=== PATIENT | male | born 1995 | race Caucasian/White ===

== ENCOUNTER 2017-08-16 06:00 | Emergency (ER) | payer SELFPAY ==
--- NOTE | 2017-08-16 06:33 | EDM.PDOC ---
ED HPI GENERAL MEDICAL PROBLEM - General Chief Complaint: Headache Stated Complaint: HEADACHE Time Seen by Provider: 08/16/17 06:13 Source of Information: Reports: Patient History Limitations: Reports: No Limitations - History of Present Illness INITIAL COMMENTS - FREE TEXT/NARRATIVE: The patient states that he developed a sudden onset throbbing headache felt across his forehead and behind his eyes around 05:00 this morning, just after he got up. The pain is made worse by being upright and moving around, better if he lies still. He also states that his headache feels better if he presses on his forehead. He had nausea earlier, but not now. He is unsure if he has photophobia. No phonophobia. No visual changes. No neurologic symptoms, such as tingling, numbness, or weakness. No prior similar symptoms, indeed, the patient states that he never gets headaches. No prior imaging study of his head. The patient states that he took an Aleve earlier, which did not help. The patient admits that he drank 8 beers last night, and that he drinks to excess on occasion. He also admits that he smokes marijuana on occasion, but not last night. The patient does not have a PCP. Frontal Headache Pain Score (Numeric/FACES): 8 - Related Data Allergies Allergy/AdvReac Type Severity Reaction Status Date / Time No Known Allergies Allergy Verified 08/16/17 06:06 Home Meds: Home Meds . [No Known Home Meds] 12/29/13 [History] Past Medical History - Past Surgical History GI Surgical History: Reports: Appendectomy Social & Family History - Tobacco Use Smoking Status *Q: Current Every Day Smoker Years of Tobacco use: 6 Packs/Tins Daily: 0.5 - Alcohol Use Alcohol Use History: Yes Alcohol Use Frequency: Socially (to excess on occasion) - Recreational Drug Use Recreational Drug Use: Yes Drug Use in Last 12 Months: Yes Recreational Drug Type: Reports: Marijuana/Hashish (smokes on occasion) - Living Situation & Occupation Living situation: Reports: Single, with Family Occupation: Unemployed ED ROS GENERAL - Review of Systems Review Of Systems: ROS reveals no pertinent complaints other than HPI. - Physical Exam Exam: See Below Exam Limited By: No Limitations General Appearance: Alert, WD/WN, Mild Distress (Appears uncomfortable) Eye Exam: Bilateral Eye: EOMI, Normal Inspection, PERRL Ears: Normal External Exam, Hearing Grossly Normal Nose: Normal Inspection, No Blood Throat/Mouth: Normal Inspection, Normal Lips, Normal Voice, No Airway Compromise Head Exam: Atraumatic, Normocephalic Neck: Normal Inspection, Full Range of Motion Respiratory/Chest: No Respiratory Distress, Lungs Clear, Normal Breath Sounds, No Accessory Muscle Use Cardiovascular: Normal Peripheral Pulses, Regular Rate, Rhythm, No Edema, No Gallop, No JVD, No Murmur, No Rub GI/Abdominal: Normal Bowel Sounds, Soft, Non-Tender, No Organomegaly, No Distention, No Abnormal Bruit, No Mass (Male) Exam: Deferred Rectal (Males) Exam: Deferred Neuro Exam (Abbreviated): Alert, Oriented, CN II-XII Intact, Normal Cognition, No Motor/Sensory Deficits Back Exam: Normal Inspection, Full Range of Motion, NT Extremities: Normal Inspection, Normal Range of Motion, No Pedal Edema, Normal Capillary Refill Psychiatric: Normal Affect Skin Exam: Warm, Dry, Intact, Normal Color, No Rash Course - Vital Signs Last Recorded V/S: Last Vital Signs Temp 36.5 C 08/16/17 06:08 Pulse 60 08/16/17 06:08 Resp 16 08/16/17 06:08 BP 128/81 08/16/17 06:08 Pulse Ox 98 08/16/17 06:08 - Re-Assessments/Exams Free Text/Narrative Re-Assessment/Exam: 08/16/17 06:25 The etiology of the patient's headache is unclear. While the patient reports that it is severe, he feels it across his forehead - it is not unilateral, and therefore it is unlikely a cluster headache. The patient reports that it is throbbing in character, and he had some nausea earlier, otherwise, he has no other features that are consistent with a migraine. I suspect that the patient' s headache is related to his excessive alcohol intake last night, in which case it should be able to be treated with IV fluid and Toradol. Because of the sudden onset and severity of his symptoms, I ordered a CT scan of his head to rule out a bleed. 08/16/17 06:57 CT of the head without contrast is read by Dr. Christianson as: 1. Nothing acute is identified on noncontrast head CT study. 08/16/17 06:59 The patient states that his headache is nearly resolved. It is unclear if it is the oxygen that he received, or, perhaps the Aleve that he took earlier finally took effect. Departure - Departure Time of Disposition: 07:00 Disposition: Home, Self-Care 01 Condition: Good Clinical Impression: Headache - Discharge Information Referrals: PCP,None [Primary Care Provider] - Forms: ED Department Discharge Additional Instructions: You were seen in the emergency room for a severe frontal headache. Workup in the ER included a CT scan of her head, which was normal. Your headaches significantly improved after he received supplemental oxygen, although it is possible that your headache improved because of the Aleve that he took earlier. Get plenty of rest today. Stay well hydrated. If any other problems, please do not hesitate to return to the ER.
--- NOTE | 2017-08-16 06:53 | CT ---
Head CT Technique: Multiple axial sections through the brain were obtained. Intravenous contrast was not utilized. Comparison: No prior intracranial imaging is available. Findings: Ventricles along with basal cisterns and sulci over the convexities are within normal limits for the patient's age. No abnormal parenchymal densities are seen. No evidence of intracranial hemorrhage. No midline shift or mass effect is seen. Bone window settings were reviewed which shows no acute calvarial abnormality. Visualized sinuses are clear. Impression: 1. Nothing acute is identified on noncontrast head CT study. Diagnostic code #1
== END 2017-08-16 07:15 | disposition home or self-care (01) ==
LOC: JD.ED 06:00
DX: R51 Headache (principal); F17.210 Nicotine dependence, cigarettes, uncomplicated
CPT/HCPCS: 70450; 70450-26; 99283; 99284-25

== ENCOUNTER 2017-10-04 23:29 | Inpatient (IN) | payer MEDICAID, OTHER ==
[2017-10-05] MEDS ORDERED: ceFAZolin 2 GM in Premix Bag 1 BAG IV STA (00:13)
[2017-10-05] MEDS ORDERED: HYDROmorphone 0.5 MG/0.5 ML Syringe IVPUSH STA (00:14)
--- NOTE | 2017-10-05 00:16 | EDM.PDOC ---
ED HPI GENERAL MEDICAL PROBLEM - General Chief Complaint: Lower Extremity Injury/Pain Stated Complaint: LEG PAIN Time Seen by Provider: 10/04/17 23:46 Source of Information: Reports: Patient History Limitations: Reports: No Limitations - History of Present Illness INITIAL COMMENTS - FREE TEXT/NARRATIVE: The patient states that the edge of his skateboard struck the medial aspect of his right leg on or about 09/27/2017. The skateboard left a small laceration to the medial leg, that bled slightly. The patient states that his leg began to swell shortly afterwards. He elevated and iced the leg, and the swelling resolves 3 or 4 days ago. The patient states that Tuesday evening, 10/03/2017, the leg became swollen again and painful. He developed erythema to the leg Tuesday or Tuesday, 10/03/2017 or . The patient states that he soak the leg in Epsom salts and applied Neosporin to the wound. He has taken ibuprofen for discomfort, but he has not sought medical evaluation until tonight, and has not taken any antibiotics. No recent fever. The patient does not have a PCP. Treatments CLASSIFICATION OFFICER: Reports: NSAIDS right lower leg Pain Score (Numeric/FACES): 9 - Related Data Allergies Allergy/AdvReac Type Severity Reaction Status Date / Time No Known Allergies Allergy Verified 10/04/17 23:47 Home Meds: Home Meds . [No Known Home Meds] 12/29/13 [History] Past Medical History - Past Surgical History GI Surgical History: Reports: Appendectomy Social & Family History - Family History Family Medical History: Noncontributory - Tobacco Use Smoking Status *Q: Current Every Day Smoker Years of Tobacco use: 7 Packs/Tins Daily: 1 - Caffeine Use Caffeine Use: Reports: Soda - Alcohol Use Alcohol Use History: Yes Alcohol Use Frequency: Socially (occasionally to excess) - Recreational Drug Use Recreational Drug Use: Yes Drug Use in Last 12 Months: Yes Recreational Drug Type: Reports: Marijuana/Hashish (smokes on occasion) - Living Situation & Occupation Living situation: Reports: Single, with Family Occupation: Unemployed ED ROS GENERAL - Review of Systems Review Of Systems: ROS reveals no pertinent complaints other than HPI. ED EXAM, SKIN/RASH Exam: See Below Exam Limited By: No Limitations General Appearance: Alert, WD/WN, No Apparent Distress Extremities: Other (There is considerable swelling and erythema to the medial aspect of the patient's right leg. It does not extend above the knee or below the ankle. The area has been demarcated. In the approximate center of the erythema is a small laceration, measuring no greater than 1 cm across. No drainage from the wound. Neurovascular status of the right lower extremity is intact.) Course - Vital Signs Last Recorded V/S: Last Vital Signs Temp 37.6 C 10/04/17 23:38 Pulse 106 H 10/04/17 23:38 Resp 18 10/04/17 23:38 BP 131/77 10/04/17 23:38 Pulse Ox 98 10/04/17 23:38 - Re-Assessments/Exams Free Text/Narrative Re-Assessment/Exam: 10/05/17 00:09 The patient has significant cellulitis to his right leg, that will require IV antibiotics until improvement has been demonstrated, which time he can be switched to oral antibiotics. The current area of erythema has been pen demarcated. 10/05/17 00:[address] Muñoz at 00:09. She accepts the patient for admission. She would like us to give 1 g of IV vancomycin. I will also start Ancef and order a MRSA screen. Departure - Departure Time of Disposition: 00:12 Disposition: Admitted As Inpatient 64 Condition: Good Clinical Impression: Cellulitis of right leg without foot - Discharge Information *PRESCRIPTION DRUG MONITORING PROGRAM REVIEWED*: Not Applicable *COPY OF PRESCRIPTION DRUG MONITORING REPORT IN PATIENT SEDA: Not Applicable Referrals: Jordan Diaz MD [Primary Care Provider] -
[2017-10-05] MEDS ORDERED: HYDROmorphone 0.5 MG/0.5 ML SYRINGE ONE (00:25)
[2017-10-05] MEDS ORDERED: Acetaminophen 325 MG Tab PO PRN (05:58)
[2017-10-05] MEDS ORDERED: Ibuprofen 800 MG Tab PO PRN (05:58)
[2017-10-05] MEDS ORDERED: Temazepam 15 MG Cap PO PRN (06:17)
[2017-10-05] MEDS: Sodium Chloride 0.9% 1,000 ML IV SCH ×3 (06:24→19:57)
[2017-10-05] MEDS: Morphine 2 MG/ML Syringe IVPUSH PRN (06:26)
[2017-10-05] MEDS ORDERED: Ondansetron 4 MG/2 ML SDV IV PRN (06:39)
[2017-10-05] MEDS ORDERED: Ondansetron 4 MG Tab.DIS PO PRN (06:39)
[2017-10-05] MEDS ORDERED: Nicotine 21 MG/24 Hr Patch TRDERM PRN (08:54)
[2017-10-05] MEDS ORDERED: Nicotine 21 MG/24 Hr Patch TRDERM SCH (09:00)
[2017-10-05] MEDS: Acetaminophen/HYDROcodone 325-5 MG Tab PO PRN ×4 (09:09→21:40)
[2017-10-05] MEDS ORDERED: Doxycycline 100 MG in Sodium Chloride 0.9% 100 ML IV SCH (13:00)
--- NOTE | 2017-10-05 20:06 | PCM.HP ---
H&P History of Present Illness - General Date of Service: 10/05/17 Admit Problem/Dx: Admission Diagnosis/Problem Admission Diagnosis/Problem Cellulitis Source of Information: Patient, Provider History Limitations: Reports: No Limitations - History of Present Illness Initial Comments - Free Text/Narative: HPI: This is a 22 yo male with past medical hx/o appendectomy who comes in for cellulitis of the R leg after sustaining a small 1cm laceration to the loo area about 8 days ago. The pain, erythema, and swelling continued to get worse so he came to the ED for treatment. His initial workup showed a CBC remarkable for WBC 14.7, Neut 75.4%, Lymph 14.8% . His chemistry is remarkable for CRP 25.4. MRSA (PCR) negative. He is subsequently admitted to the medical floor for IV antibiotics. He is a Full Code. Currently he has no PCP. right lower leg Pain Score (Numeric/FACES): 9 - Related Data Allergies/Adverse Reactions: Allergies Allergy/AdvReac Type Severity Reaction Status Date / Time No Known Allergies Allergy Verified 10/04/17 23:47 Home Medications: Home Meds . [No Known Home Meds] 12/29/13 [History] Past Medical History - Past Health History Medical/Surgical History: Denies Medical/Surgical History Neurological History: Reports: Headaches, Chronic - Infectious Disease History Infectious Disease History: Reports: Chicken Pox - Past Surgical History GI Surgical History: Reports: Appendectomy Social & Family History - Family History Family Medical History: Noncontributory - Tobacco Use Smoking Status *Q: Current Every Day Smoker Years of Tobacco use: 7 Packs/Tins Daily: 1 Used Tobacco, but Quit: No - Caffeine Use Caffeine Use: Reports: Coffee - Recreational Drug Use Recreational Drug Use: Yes Drug Use in Last 12 Months: Yes Recreational Drug Type: Reports: Marijuana/Hashish - Living Situation & Occupation Living situation: Reports: Single, with Family Occupation: Unemployed H&P Review of Systems - Review of Systems: Review Of Systems: ROS reveals no pertinent complaints other than HPI. General: Denies: Fever, Chills Gastrointestinal: Denies: Abdominal Pain, Diarrhea, Nausea, Vomiting Skin: Reports: Erythema (Medial aspect of the patient's right leg, has extended another 2 inches from previous marking. The area has been demarcated with dotted line.), Wound (1 cm scab with no drainage on lower leg) Exam - Exam Exam: See Below - Vital Signs Vital Signs: Last Vital Signs Temp 98.4 F 10/05/17 18:42 Pulse 62 10/05/17 18:42 Resp 14 10/05/17 18:42 BP 130/72 10/05/17 18:42 Pulse Ox 100 10/05/17 18:42 Weight: 185 lb 3.2 oz - Exam General: Alert, Oriented, Cooperative, Mild Distress HEENT: PERRLA, Hearing Intact, Mucosa Moist & [place], Nares Patent, Normal Nasal Septum, Posterior Pharynx Clear, Conjunctiva Clear, EOMI, EACs Clear, TMs Clear Neck: Supple, Trachea Midline, 2 Lungs: Clear to Auscultation, Normal Respiratory Effort Cardiovascular: Regular Rate GI/Abdominal Exam: Normal Bowel Sounds, Soft, Non-Tender, No Organomegaly, No Distention, No Abnormal Bruit, No Mass, Pelvis Stable (Male) Exam: Deferred Rectal (Males) Exam: Deferred Back Exam: Normal Inspection, Full Range of Motion, NT Extremities: Normal Range of Motion, Normal Capillary Refill, Leg Pain, Increased Warmth, Redness, Other (Swelling and erythema to the medial aspect of the patient's right leg, has extended another 2 inches from previous marking. The area has been demarcated with dotted line. 1 cm scab with no drainage in the center of the erythema. Neurovascularly intact. ) Peripheral Pulses: 3+: Posterior Tibial (L), Posterior Tibial (R), Dorsalis Pedis (L), Dorsalis Pedis (R) Skin: Warm, Dry, Intact, Rash, Wound (1 cm scab with no drainage on RLE) Skin Alteration Location (Drawings Not To Scale): 1 - scab from original entry wound Neurological: Cranial Nerves Intact (grossly), Reflexes Equal Bilateral Neuro Extensive - Mental Status: Alert, Oriented x3, Normal Mood/Affect, Normal Cognition Psychiatric: Alert, Normal Affect, Normal Mood - Patient Data Lab Results Last 24 hrs: Laboratory Results - last 24 hr 10/05/17 10/05/17 10/05/17 Range/Units 00:15 07:05 07:05 WBC 14.70 H (4.23-9.07) K/mm3 RBC 4.82 (4.63-6.08) M/mm3 Hgb 14.8 (13.7-17.5) gm/L Hct 43.9 (40.1-51.0) % MCV 91.1 (79.0-92.2) fl MCH 30.7 (25.7-32.2) pg MCHC 33.7 (32.2-35.5) g/dl RDW Std Deviation 43.6 (35.1-43.9) fL Plt Count 292 (163-337) K/mm3 MPV 10.4 (9.4-12.3) fl Neut % (Auto) 75.4 H (34.0-67.9) % Lymph % (Auto) 14.8 L (21.8-53.1) % [place] % (Auto) 8.8 (5.3-12.2) % Eos % (Auto) 0.7 L (0.8-7.0) Baso % (Auto) 0.2 (0.1-1.2) % Neut # (Auto) 11.08 H (1.78-5.38) K/mm3 Lymph # (Auto) 2.17 (1.32-3.57) K/mm3 [place] # (Auto) 1.30 H (0.30-0.82) K/mm3 Eos # (Auto) 0.10 (0.04-0.54) K/mm3 Baso # (Auto) 0.03 (0.01-0.08) K/mm3 Sodium 138 (136-145) mEq/L Potassium 3.6 (3.5-5.1) mEq/L Chloride 100 (98-107) mEq/L Carbon Dioxide 28 (21-32) mEq/L Anion Gap 13.6 (5-15) BUN 10 (7-18) mg/dL Creatinine 0.9 (0.7-1.3) mg/dL Est Cr Clr Drug Dosing 147.15 mL/min Estimated GFR (MDRD) > 60 (>60) mL/min BUN/Creatinine Ratio 11.1 L (14-18) Glucose 91 (74-106) mg/dL Lactic Acid (0.4-2.0) mmol/L Calcium 9.1 (8.5-10.1) mg/dL Magnesium 2.2 (1.8-2.4) mg/dl C-Reactive Protein 25.4 H* (<1.0) mg/dL MRSA (PCR) Negative 10/05/17 Range/Units 07:05 WBC (4.23-9.07) K/mm3 RBC (4.63-6.08) M/mm3 Hgb (13.7-17.5) gm/L Hct (40.1-51.0) % MCV (79.0-92.2) fl MCH (25.7-32.2) pg MCHC (32.2-35.5) g/dl RDW Std Deviation (35.1-43.9) fL Plt Count (163-337) K/mm3 MPV (9.4-12.3) fl Neut % (Auto) (34.0-67.9) % Lymph % (Auto) (21.8-53.1) % [place] % (Auto) (5.3-12.2) % Eos % (Auto) (0.8-7.0) Baso % (Auto) (0.1-1.2) % Neut # (Auto) (1.78-5.38) K/mm3 Lymph # (Auto) (1.32-3.57) K/mm3 [place] # (Auto) (0.30-0.82) K/mm3 Eos # (Auto) (0.04-0.54) K/mm3 Baso # (Auto) (0.01-0.08) K/mm3 Sodium (136-145) mEq/L Potassium (3.5-5.1) mEq/L Chloride (98-107) mEq/L Carbon Dioxide (21-32) mEq/L Anion Gap (5-15) BUN (7-18) mg/dL Creatinine (0.7-1.3) mg/dL Est Cr Clr Drug Dosing mL/min Estimated GFR (MDRD) (>60) mL/min BUN/Creatinine Ratio (14-18) Glucose (74-106) mg/dL Lactic Acid 0.5 (0.4-2.0) mmol/L Calcium (8.5-10.1) mg/dL Magnesium (1.8-2.4) mg/dl C-Reactive Protein (<1.0) mg/dL MRSA (PCR) Result Diagrams: 10/05/17 07:05 10/05/17 07:05 - Problem List (1) Cellulitis of right leg without foot SNOMED Code(s): 094677499 ICD Code: L03.115 - CELLULITIS OF RIGHT LOWER LIMB Status: Acute Priority : High Current Visit: Yes Problem List Initiated/Reviewed/Updated: Yes Orders Last 24hrs: Active Orders 24 hr Category Date Time Status Patient Status [ADT] Routine ADT 10/05/17 15:11 Active Ambulate [RC] ASDIRECTED Care 10/05/17 06:39 Active Height and Weight [RC] 04 Care 10/05/17 06:39 Active Intake and Output [RC] 04,16 Care 10/05/17 06:40 Active Oxygen Therapy [RC] PRN Care 10/05/17 06:39 Active Pulse Oximetry [RC] PRN Care 10/05/17 06:40 Active Up With Assistance [RC] ASDIRECTED Care 10/05/17 06:50 Active Up ad Shannan [RC] ASDIRECTED Care 10/05/17 06:39 Active VTE/DVT Education [RC] PER UNIT ROUTINE Care 10/05/17 06:39 Active Vital Signs [RC] 09,15,03,21 Care 10/05/17 06:39 Active Consult to [facility] [CONS] Routine Cons 10/05/17 08:47 Active Regular Diet [DIET] Diet 10/05/17 Breakfast Active BASIC METABOLIC PANEL,BMP [CHEM] AM Lab 10/06/17 05:11 Ordered BASIC METABOLIC PANEL,BMP [CHEM] AM Lab 10/07/17 05:11 Ordered BASIC METABOLIC PANEL,BMP [CHEM] AM Lab 10/08/17 05:11 Ordered BASIC METABOLIC PANEL,BMP [CHEM] AM Lab 10/09/17 05:11 Ordered CBC WITH AUTO DIFF [HEME] AM Lab 10/06/17 05:11 Ordered CBC WITH AUTO DIFF [HEME] AM Lab 10/07/17 05:11 Ordered CBC WITH AUTO DIFF [HEME] AM Lab 10/08/17 05:11 Ordered CBC WITH AUTO DIFF [HEME] AM Lab 10/09/17 05:11 Ordered CRP [C-REACTIVE PROTEIN] [CHEM] AM Lab 10/06/17 05:11 Ordered CRP [C-REACTIVE PROTEIN] [CHEM] AM Lab 10/07/17 05:11 Ordered CRP [C-REACTIVE PROTEIN] [CHEM] AM Lab 10/08/17 05:11 Ordered CRP [C-REACTIVE PROTEIN] [CHEM] AM Lab 10/09/17 05:11 Ordered CULTURE BLOOD [BC] Stat Lab 10/05/17 07:05 Received CULTURE BLOOD [BC] Stat Lab 10/05/17 07:15 Received MAGNESIUM [CHEM] AM Lab 10/06/17 05:11 Ordered MAGNESIUM [CHEM] AM Lab 10/07/17 05:11 Ordered MAGNESIUM [CHEM] AM Lab 10/08/17 05:11 Ordered MAGNESIUM [CHEM] AM Lab 10/09/17 05:11 Ordered METH-RESIST S.AUR,MRSA BY PCR [MOLEC] Stat Lab 10/05/17 00:15 Ordered Acetaminophen [Tylenol] Med 10/05/17 05:58 Active 650 mg PO Q6HR PRN Acetaminophen/HYDROcodone [[facility] 325-5 MG] Med 10/05/17 06:39 Active 1 tab PO Q4H PRN Doxycycline [Vibramycin] 100 mg Med 10/05/17 13:00 Active Sodium Chloride 0.9% [Normal Saline] 100 ml IV Q12H Ibuprofen [Motrin] Med 10/05/17 05:58 Active 800 mg PO Q8HR PRN Morphine Med 10/05/17 06:18 Active 2 mg IVPUSH Q4H PRN Nicotine [Habitrol] Med 10/05/17 08:54 Active 21 mg TRDERM DAILY PRN Ondansetron [Zofran ODT] Med 10/05/17 06:39 Active 4 mg PO Q6H PRN Ondansetron [Zofran] Med 10/05/17 06:39 Active 4 mg IV Q6H PRN Sodium Chloride 0.9% [Normal Saline] 1,000 ml Med 10/05/17 06:00 Active IV ASDIRECTED Temazepam [Restoril] Med 10/05/17 06:17 Active 15 mg PO BEDTIME PRN Blood Culture x2 Reflex Set [OM.PC] Stat Oth 10/05/17 06:46 Ordered Resuscitation Status Routine Resus Stat 10/05/17 05:57 Ordered Medication Orders Acetaminophen (Tylenol) 650 mg PO Q6HR PRN PRN Reason: Pain Hydrocodone Bitart/Acetaminophen ([facility] 325-5 Mg) 1 tab PO Q4H PRN PRN Reason: Pain (moderate 4-6) Last Admin: 10/05/17 17:29 Dose: 1 tab Admin: 10/05/17 13:27 Dose: 1 tab Admin: 10/05/17 09:09 Dose: 1 tab Sodium Chloride (Normal Saline) 1,000 mls @ 150 mls/hr IV ASDIRECTED PENDING SALE TO [facility] Last Admin: 10/05/17 19:57 Dose: 150 mls/hr Infusion: 10/05/17 19:57 Dose: 150 mls/hr Admin: 10/05/17 13:24 Dose: 150 mls/hr Infusion: 10/05/17 13:05 Dose: 150 mls/hr Admin: 10/05/17 06:24 Dose: 150 mls/hr Doxycycline Hyclate 100 mg/ (Sodium Chloride) 100 mls @ 100 mls/hr IV Q12H PENDING SALE TO [facility] Last Admin: 10/05/17 13:25 Dose: 100 mls/hr Ibuprofen (Motrin) 800 mg PO Q8HR PRN PRN Reason: Pain Morphine Sulfate (Morphine) 2 mg IVPUSH Q4H PRN PRN Reason: Pain Last Admin: 10/05/17 06:26 Dose: 2 mg Nicotine (Habitrol) 21 mg TRDERM DAILY PRN PRN Reason: Need to smoke Ondansetron HCl (Zofran Odt) 4 mg PO Q6H PRN PRN Reason: nausea, able to take PO Ondansetron HCl (Zofran) 4 mg IV Q6H PRN PRN Reason: Nausea/Vomiting Temazepam (Restoril) 15 mg PO BEDTIME PRN PRN Reason: Insomnia Assessment/Plan Comment:: Acute: Cellulitis, R Leg * 8 days ago his skateboard struck the medial aspect of his right leg, 2 days ago the leg became swollen and painful, Yesterday erythema began * No Fever/Chills * Ancef 2gm and Vancomycin 1g given in ED--> D/C'd * WBC 14.7, CRP 25.4 * Sepsis Protocol: * Lactic Acid 0.5 * Blood cultures pending * IVF * Pt was switched to Doxy 100mg BID --> D/C; erythema grew 2 inches from previous markings on leg; have made new dotted markings to differentiate and continue to monitor * Restart Vancomycin 1g tonight * MRSA by PCR negative; No wound to culture * Pain management PRN Tobacco Dependence * 1 ppd x 7 years * Not interested in quitting at this time * Smoking Cessation counseling given * Nicotine patch started Chronic: h/o Appendectomy h/o Marijuana use Plan: Admit to medical floor Home meds as ordered Routine AM labs Other orders as above DVT Prophylaxis: Ambulation GI Prophylaxis: Pepcid Code Status: Full Code; PCP: none
[2017-10-05] MEDS: Famotidine 20 MG Tab PO SCH (21:39)
[2017-10-06] MEDS ORDERED: Vancomycin 500 MG SDV ONE (03:08)
[2017-10-06] MEDS: Sodium Chloride 0.9% 1,000 ML IV SCH ×3 (03:28→20:03)
[2017-10-06] MEDS: Acetaminophen/HYDROcodone 325-5 MG Tab PO PRN ×3 (05:28→21:00)
[2017-10-06] MEDS: Famotidine 20 MG Tab PO SCH ×2 (09:53→20:04)
[2017-10-06] MEDS ORDERED: Diphtheria/Tetanus Toxoids,Adult (Td) 0.5 ML Syringe IM ONE (11:45)
[2017-10-06] MEDS: cefTRIAXone 2 GM in Sodium Chloride 0.9% 100 ML IV SCH (11:52)
[2017-10-06] MEDS: Saccharomyces Boulardii (Probiotic) 250 MG Cap PO SCH (12:11)
--- NOTE | 2017-10-06 18:58 | PCM.PN ---
<Miguelina Cifuentes - Last Filed: 10/06/17 18:52> - General Info Date of Service: 10/06/17 Admission Dx/Problem (Free Text): Admission Diagnosis/Problem Admission Diagnosis/Problem Cellulitis Subjective Update: In to see Adan. He is sleeping in bed is awoken when I knock on the door. He is doing well, and the erythema from yesterday has receded below the original marking from the ED. I explained that we changed the antibiotics since it had grown 2 inches yesterday and that they seem to be working. He denies any other symptoms. No F/C, N/V/D. No concerns from nursing. Functional Status: Reports: Pain Controlled, Tolerating Diet, Ambulating, Urinating - Review of Systems General: Reports: No Symptoms. Denies: Fever, Chills HEENT: Reports: No Symptoms Pulmonary: Reports: No Symptoms. Denies: Shortness of Breath Cardiovascular: Reports: No Symptoms. Denies: Chest Pain Gastrointestinal: Reports: No Symptoms. Denies: Abdominal Pain, Diarrhea, Nausea, Vomiting Genitourinary: Reports: No Symptoms Musculoskeletal: Reports: No Symptoms Skin: Reports: Other (erythema from yesterday has receded below the original marking from the ED) Neurological: Reports: No Symptoms Psychiatric: Reports: No Symptoms - Patient Data Vitals - Most Recent: Last Vital Signs Temp 98.1 F 10/06/17 15:07 Pulse 67 10/06/17 15:07 Resp 18 10/06/17 15:07 BP 131/79 10/06/17 15:07 Pulse Ox 97 10/06/17 15:07 Weight - Most Recent: 87.679 kg I&O - Last 24 Hours: Intake & Output 10/06/17 10/06/17 10/06/17 06:59 14:59 22:59 Intake Total 2874 2652 Balance 2874 2652 Lab Results Last 24 Hours: Laboratory Results - last 24 hr 10/06/17 10/06/17 Range/Units 05:35 05:35 WBC 10.95 H (4.23-9.07) K/mm3 RBC 4.14 L (4.63-6.08) M/mm3 Hgb 12.7 L (13.7-17.5) gm/L Hct 38.4 L (40.1-51.0) % MCV 92.8 H (79.0-92.2) fl MCH 30.7 (25.7-32.2) pg MCHC 33.1 (32.2-35.5) g/dl RDW Std Deviation 43.8 (35.1-43.9) fL Plt Count 256 (163-337) K/mm3 MPV 10.6 (9.4-12.3) fl Neut % (Auto) 73.6 H (34.0-67.9) % Lymph % (Auto) 16.5 L (21.8-53.1) % [place] % (Auto) 8.0 (5.3-12.2) % Eos % (Auto) 1.5 (0.8-7.0) Baso % (Auto) 0.2 (0.1-1.2) % Neut # (Auto) 8.06 H (1.78-5.38) K/mm3 Lymph # (Auto) 1.81 (1.32-3.57) K/mm3 [place] # (Auto) 0.88 H (0.30-0.82) K/mm3 Eos # (Auto) 0.16 (0.04-0.54) K/mm3 Baso # (Auto) 0.02 (0.01-0.08) K/mm3 Sodium 141 (136-145) mEq/L Potassium 4.1 (3.5-5.1) mEq/L Chloride 107 (98-107) mEq/L Carbon Dioxide 26 (21-32) mEq/L Anion Gap 12.1 (5-15) BUN 9 (7-18) mg/dL Creatinine 0.9 (0.7-1.3) mg/dL Est Cr Clr Drug Dosing 147.15 mL/min Estimated GFR (MDRD) > 60 (>60) mL/min BUN/Creatinine Ratio 10.0 L (14-18) Glucose 91 (74-106) mg/dL Calcium 8.2 L (8.5-10.1) mg/dL Magnesium 1.8 (1.8-2.4) mg/dl C-Reactive Protein 18.3 H* (<1.0) mg/dL Rogelio Results Last 24 Hours: Microbiology 10/05/17 07:05 Aerobic Blood Culture - Preliminary Blood - Venous NO GROWTH AFTER 1 DAY Anaerobic Blood Culture - Preliminary NO GROWTH AFTER 1 DAY 08/15/18 07:15 Aerobic Blood Culture - Preliminary Blood - Venous - Lab Draw NO GROWTH AFTER 1 DAY Anaerobic Blood Culture - Final Med Orders - Current: Current Medications Acetaminophen (Tylenol) 650 mg PO Q6HR PRN PRN Reason: Pain Hydrocodone Bitart/Acetaminophen ([place] 325-5 Mg) 1 tab PO Q4H PRN PRN Reason: Pain (moderate 4-6) Last Admin: 10/06/17 11:56 Dose: 1 tab Famotidine (Pepcid) 20 mg PO BID [facility] Last Admin: 10/06/17 09:53 Dose: 20 mg Vancomycin HCl 1 gm/Vancomycin HCl 250 mg/ Sodium Chloride 250 mls @ 250 mls/ hr IV Q8H [facility] Last Admin: 10/06/17 13:14 Dose: 250 mls/hr Sodium Chloride (Normal Saline) 1,000 mls @ 100 mls/hr IV ASDIRECTED [facility] Last Admin: 10/06/17 10:01 Dose: 100 mls/hr Ceftriaxone Sodium 2 gm/ (Sodium Chloride) 100 mls @ 200 mls/hr IV Q24H [facility] Last Admin: 10/06/17 11:52 Dose: 200 mls/hr Ibuprofen (Motrin) 800 mg PO Q8HR PRN PRN Reason: Pain Morphine Sulfate (Morphine) 2 mg IVPUSH Q4H PRN PRN Reason: Pain Last Admin: 10/05/17 06:26 Dose: 2 mg Nicotine (Habitrol) 21 mg TRDERM DAILY PRN PRN Reason: Need to smoke Ondansetron HCl (Zofran Odt) 4 mg PO Q6H PRN PRN Reason: nausea, able to take PO Ondansetron HCl (Zofran) 4 mg IV Q6H PRN PRN Reason: Nausea/Vomiting Saccharomyces Boulardii (Florastor) 500 mg PO DAILY [facility] Last Admin: 10/06/17 12:11 Dose: 500 mg Temazepam (Restoril) 15 mg PO BEDTIME PRN PRN Reason: Insomnia Vancomycin HCl (Pharmacy To Dose - Vancomycin) 0 dose .XX ASDIRECTED [facility] Discontinued Medications Hydromorphone HCl (Dilaudid) 1 mg IVPUSH ONETIME STA Stop: 10/05/17 00:15 Last Admin: 10/05/17 00:34 Dose: Not Given Hydromorphone HCl (Dilaudid) Confirm Administered Dose 1 mg .ROUTE .STK-MED ONE Stop: 10/05/17 00:26 Last Admin: 10/05/17 00:33 Dose: 1 mg Cefazolin Sodium/Dextrose 2 gm (/ Premix) 50 mls @ 100 mls/hr IV ONETIME STA Stop: 10/05/17 00:42 Last Admin: 10/05/17 00:34 Dose: 100 mls/hr Vancomycin HCl 1 gm/ Sodium (Chloride) 250 mls @ 250 mls/hr IV ONETIME STA Stop: 10/05/17 01:12 Last Admin: 10/05/17 01:13 Dose: 250 mls/hr Sodium Chloride (Normal Saline) 1,000 mls @ 150 mls/hr IV ASDIRECTED [facility] Last Admin: 10/06/17 03:28 Dose: 150 mls/hr Doxycycline Hyclate 100 mg/ (Sodium Chloride) 100 mls @ 100 mls/hr IV Q12H [facility] Last Admin: 10/05/17 13:25 Dose: 100 mls/hr Tetanus/Diphtheria Toxoids (Tenivac) 0.5 ml IM .ONCE ONE Stop: 10/06/17 11:46 Last Admin: 10/06/17 12:00 Dose: 0.5 ml Vancomycin HCl (Vancomycin) Confirm Administered Dose 500 mg .ROUTE .STK-MED ONE Stop: 10/06/17 03:09 Last Admin: 10/06/17 03:16 Dose: Not Given - Exam General: Alert, Oriented, Cooperative, No Acute Distress HEENT: Pupils Equal, Pupils Reactive, EOMI, Mucous Membr. Moist/[place] Neck: Supple Lungs: Clear to Auscultation, Normal Respiratory Effort Cardiovascular: Regular Rate, Regular Rhythm GI/Abdominal Exam: Normal Bowel Sounds, Soft, Non-Tender, No Organomegaly, No Distention, No Abnormal Bruit, No Mass, Pelvis Stable (Male) Exam: Deferred Back Exam: Normal Inspection, Full Range of Motion Extremities: Increased Warmth (improving), Redness (erythema improving; has receded below the original marking from the ED) Peripheral Pulses: 4+: Posterior Tibial (L), Posterior Tibial (R), Dorsalis Pedis (L), Dorsalis Pedis (R) Skin: Warm, Dry, Intact Neurological: No New Focal Deficit Psy/Mental Status: Alert, Normal Affect, Normal Mood - Problem List & Annotations (1) Cellulitis of right leg without foot SNOMED Code(s): 355152701 Code(s): L03.115 - CELLULITIS OF RIGHT LOWER LIMB Status: Acute Priority : High Current Visit: Yes - Problem List Review Problem List Initiated/Reviewed/Updated: Yes - My Orders Last 24 Hours: My Active Orders 10/05/17 20:00 Vancomycin 1 gm Vancomycin 250 mg Sodium Chloride 0.9% [Normal Saline] 250 ml IV Q8H 10/05/17 20:15 Vancomycin Pharmacy to Dose [Pharmacy to Dose - Vancomycin] 0 dose .XX ASDIRECTED 10/05/17 21:00 Famotidine [Pepcid] 20 mg PO BID - Plan Plan:: Acute: Cellulitis, R Leg * 8 days ago his skateboard struck the medial aspect of his right leg, 2 days ago the leg became swollen and painful, Yesterday erythema began * No Fever/Chills * Ancef 2gm and Vancomycin 1g given in ED--> D/C'd * WBC 14.7, CRP 25.4 * Sepsis Protocol: * Lactic Acid 0.5 * Blood cultures pending * IVF * Pt was switched to Doxy 100mg BID --> D/C; erythema grew 2 inches from previous markings on leg; have made new dotted markings to differentiate and continue to monitor * Restart Vancomycin 1g tonight, add Rocephin--> erythema has receded below the original markings in the ED; continue this regimen * MRSA by PCR negative; No wound to culture * Pain management PRN Tobacco Dependence * 1 ppd x 7 years * Not interested in quitting at this time * Smoking Cessation counseling given * Nicotine patch started Chronic: h/o Appendectomy h/o Marijuana use Plan: Admit to medical floor Home meds as ordered Routine AM labs Other orders as above DVT Prophylaxis: Ambulation GI Prophylaxis: Pepcid Code Status: Full Code; PCP: none <Lynn Muñoz - Last Filed: 10/06/17 20:03> - Patient Data Vitals - Most Recent: Last Vital Signs Temp 36.1 C 10/06/17 19:53 Pulse 57 L 10/06/17 19:53 Resp 20 10/06/17 19:53 BP 135/77 10/06/17 19:53 Pulse Ox 100 10/06/17 19:53 I&O - Last 24 Hours: Intake & Output 10/06/17 10/06/17 10/06/17 06:59 14:59 22:59 Intake Total 2877 2652 Balance 2870 2651 Lab Results Last 24 Hours: Laboratory Results - last 24 hr 10/06/17 10/06/17 Range/Units 05:35 05:35 WBC 10.95 H (4.23-9.07) K/mm3 RBC 4.14 L (4.63-6.08) M/mm3 Hgb 12.7 L (13.7-17.5) gm/L Hct 38.4 L (40.1-51.0) % MCV 92.8 H (79.0-92.2) fl MCH 30.7 (25.7-32.2) pg MCHC 33.1 (32.2-35.5) g/dl RDW Std Deviation 43.8 (35.1-43.9) fL Plt Count 256 (163-337) K/mm3 MPV 10.6 (9.4-12.3) fl Neut % (Auto) 73.6 H (34.0-67.9) % Lymph % (Auto) 16.5 L (21.8-53.1) % [place] % (Auto) 8.0 (5.3-12.2) % Eos % (Auto) 1.5 (0.8-7.0) Baso % (Auto) 0.2 (0.1-1.2) % Neut # (Auto) 8.06 H (1.78-5.38) K/mm3 Lymph # (Auto) 1.81 (1.32-3.57) K/mm3 [place] # (Auto) 0.88 H (0.30-0.82) K/mm3 Eos # (Auto) 0.16 (0.04-0.54) K/mm3 Baso # (Auto) 0.02 (0.01-0.08) K/mm3 Sodium 141 (136-145) mEq/L Potassium 4.1 (3.5-5.1) mEq/L Chloride 107 (98-107) mEq/L Carbon Dioxide 26 (21-32) mEq/L Anion Gap 12.1 (5-15) BUN 9 (7-18) mg/dL Creatinine 0.9 (0.7-1.3) mg/dL Est Cr Clr Drug Dosing 147.15 mL/min Estimated GFR (MDRD) > 60 (>60) mL/min BUN/Creatinine Ratio 10.0 L (14-18) Glucose 91 (74-106) mg/dL Calcium 8.2 L (8.5-10.1) mg/dL Magnesium 1.8 (1.8-2.4) mg/dl C-Reactive Protein 18.3 H* (<1.0) mg/dL Rogelio Results Last 24 Hours: Microbiology 10/05/17 07:05 Aerobic Blood Culture - Preliminary Blood - Venous NO GROWTH AFTER 1 DAY Anaerobic Blood Culture - Preliminary NO GROWTH AFTER 1 DAY 10/05/17 07:15 Aerobic Blood Culture - Preliminary Blood - Venous - Lab Draw NO GROWTH AFTER 1 DAY Anaerobic Blood Culture - Final Med Orders - Current: Current Medications Acetaminophen (Tylenol) 650 mg PO Q6HR PRN PRN Reason: Pain Hydrocodone Bitart/Acetaminophen ([place] 325-5 Mg) 1 tab PO Q4H PRN PRN Reason: Pain (moderate 4-6) Last Admin: 10/06/17 11:56 Dose: 1 tab Famotidine (Pepcid) 20 mg PO BID [facility] Last Admin: 10/06/17 09:53 Dose: 20 mg Vancomycin HCl 1 gm/Vancomycin HCl 250 mg/ Sodium Chloride 250 mls @ 250 mls/ hr IV Q8H [facility] Last Admin: 10/06/17 13:14 Dose: 250 mls/hr Sodium Chloride (Normal Saline) 1,000 mls @ 100 mls/hr IV ASDIRECTED [facility] Last Admin: 10/06/17 10:01 Dose: 100 mls/hr Ceftriaxone Sodium 2 gm/ (Sodium Chloride) 100 mls @ 200 mls/hr IV Q24H [facility] Last Admin: 10/06/17 11:52 Dose: 200 mls/hr Ibuprofen (Motrin) 800 mg PO Q8HR PRN PRN Reason: Pain Morphine Sulfate (Morphine) 2 mg IVPUSH Q4H PRN PRN Reason: Pain Last Admin: 10/05/17 06:26 Dose: 2 mg Nicotine (Habitrol) 21 mg TRDERM DAILY PRN PRN Reason: Need to smoke Ondansetron HCl (Zofran Odt) 4 mg PO Q6H PRN PRN Reason: nausea, able to take PO Ondansetron HCl (Zofran) 4 mg IV Q6H PRN PRN Reason: Nausea/Vomiting Saccharomyces Boulardii (Florastor) 500 mg PO DAILY [facility] Last Admin: 10/06/17 12:11 Dose: 500 mg Temazepam (Restoril) 15 mg PO BEDTIME PRN PRN Reason: Insomnia Vancomycin HCl (Pharmacy To Dose - Vancomycin) 0 dose .XX ASDIRECTED [facility] Discontinued Medications Hydromorphone HCl (Dilaudid) 1 mg IVPUSH ONETIME STA Stop: 10/05/17 00:15 Last Admin: 10/05/17 00:34 Dose: Not Given Hydromorphone HCl (Dilaudid) Confirm Administered Dose 1 mg .ROUTE .STK-MED ONE Stop: 10/05/17 00:26 Last Admin: 10/05/17 00:33 Dose: 1 mg Cefazolin Sodium/Dextrose 2 gm (/ Premix) 50 mls @ 100 mls/hr IV ONETIME STA Stop: 10/05/17 00:42 Last Admin: 10/05/17 00:34 Dose: 100 mls/hr Vancomycin HCl 1 gm/ Sodium (Chloride) 250 mls @ 250 mls/hr IV ONETIME STA Stop: 10/05/17 01:12 Last Admin: 10/05/17 01:13 Dose: 250 mls/hr Sodium Chloride (Normal Saline) 1,000 mls @ 150 mls/hr IV ASDIRECTED [facility] Last Admin: 10/06/17 03:28 Dose: 150 mls/hr Doxycycline Hyclate 100 mg/ (Sodium Chloride) 100 mls @ 100 mls/hr IV Q12H [facility] Last Admin: 10/05/17 13:25 Dose: 100 mls/hr Tetanus/Diphtheria Toxoids (Tenivac) 0.5 ml IM .ONCE ONE Stop: 10/06/17 11:46 Last Admin: 10/06/17 12:00 Dose: 0.5 ml Vancomycin HCl (Vancomycin) Confirm Administered Dose 500 mg .ROUTE .STK-MED ONE Stop: 10/06/17 03:09 Last Admin: 10/06/17 03:16 Dose: Not Given - My Orders Last 24 Hours: My Active Orders 10/06/17 10:00 Sodium Chloride 0.9% [Normal Saline] 1,000 ml IV ASDIRECTED 10/06/17 11:30 Saccharomyces Boulardii [Florastor] 500 mg PO DAILY cefTRIAXone [Rocephin] 2 gm Sodium Chloride 0.9% [Normal Saline] 100 ml IV Q24H - Plan Plan:: Gm - coverage--->added Rocephin
[2017-10-07] MEDS: Sodium Chloride 0.9% 1,000 ML IV SCH ×2 (04:21→15:32)
[2017-10-07] MEDS: Saccharomyces Boulardii (Probiotic) 250 MG Cap PO SCH (09:32)
[2017-10-07] MEDS: Famotidine 20 MG Tab PO SCH ×2 (09:33→20:11)
[2017-10-07] MEDS: Acetaminophen/HYDROcodone 325-5 MG Tab PO PRN ×2 (10:11→18:35)
[2017-10-07] MEDS: cefTRIAXone 2 GM in Sodium Chloride 0.9% 100 ML IV SCH (11:13)
--- NOTE | 2017-10-07 15:54 | PCM.PN ---
- General Info Date of Service: 10/07/17 Admission Dx/Problem (Free Text): Admission Diagnosis/Problem Admission Diagnosis/Problem Cellulitis Subjective Update: In to see Adan. He is doing well, erythema continues to diminish. No new symptoms. Denies F/C, N/V/D. Will start training with PT to walk with crutches. No concerns from nursing. Will likely D/C once IV antibiotics are no longer required. There is a 1cm x 1cm abscess that has formed near the entry site of the original wound. I discussed this with the pt and explained that the antibiotics will likely not be able to get rid of that without doing an I&D. Pt agrees to have the procedure done. Functional Status: Reports: Pain Controlled, Tolerating Diet, Ambulating, Urinating - Review of Systems General: Reports: No Symptoms. Denies: Fever, Chills HEENT: Reports: No Symptoms Pulmonary: Reports: No Symptoms. Denies: Shortness of Breath, Cough Cardiovascular: Reports: No Symptoms. Denies: Chest Pain Gastrointestinal: Reports: No Symptoms. Denies: Abdominal Pain, Diarrhea, Nausea, Vomiting Genitourinary: Reports: No Symptoms Musculoskeletal: Reports: No Symptoms Skin: Reports: Other (erythema improving; there is a 1cm x 1cm abscess that has formed near the original entry site wound) Neurological: Reports: No Symptoms Psychiatric: Reports: No Symptoms - Patient Data Vitals - Most Recent: Last Vital Signs Temp 98.1 F 10/07/17 14:55 Pulse 61 10/07/17 14:55 Resp 16 10/07/17 14:55 BP 132/51 L 10/07/17 14:55 Pulse Ox 99 10/07/17 14:55 Weight - Most Recent: 187 lb I&O - Last 24 Hours: Intake & Output 10/07/17 10/07/17 10/07/17 06:59 14:59 22:59 Intake Total 1693 480 Balance 1693 480 Lab Results Last 24 Hours: Laboratory Results - last 24 hr 10/06/17 10/07/17 10/07/17 Range/Units 19:32 06:20 06:20 WBC 9.68 H (4.23-9.07) K/mm3 RBC 3.98 L (4.63-6.08) M/mm3 Hgb 12.2 L (13.7-17.5) gm/L Hct 36.7 L (40.1-51.0) % MCV 92.2 (79.0-92.2) fl MCH 30.7 (25.7-32.2) pg MCHC 33.2 (32.2-35.5) g/dl RDW Std Deviation 43.1 (35.1-43.9) fL Plt Count 287 (163-337) K/mm3 MPV 10.4 (9.4-12.3) fl Neut % (Auto) 66.9 (34.0-67.9) % Lymph % (Auto) 22.5 (21.8-53.1) % [place] % (Auto) 8.2 (5.3-12.2) % Eos % (Auto) 1.9 (0.8-7.0) Baso % (Auto) 0.3 (0.1-1.2) % Neut # (Auto) 6.48 H (1.78-5.38) K/mm3 Lymph # (Auto) 2.18 (1.32-3.57) K/mm3 [place] # (Auto) 0.79 (0.30-0.82) K/mm3 Eos # (Auto) 0.18 (0.04-0.54) K/mm3 Baso # (Auto) 0.03 (0.01-0.08) K/mm3 Sodium 143 (136-145) mEq/L Potassium 3.7 (3.5-5.1) mEq/L Chloride 108 H (98-107) mEq/L Carbon Dioxide 27 (21-32) mEq/L Anion Gap 11.7 (5-15) BUN 8 (7-18) mg/dL Creatinine 0.9 (0.7-1.3) mg/dL Est Cr Clr Drug Dosing 147.15 mL/min Estimated GFR (MDRD) > 60 (>60) mL/min BUN/Creatinine Ratio 8.9 L (14-18) Glucose 89 (74-106) mg/dL Calcium 8.7 (8.5-10.1) mg/dL Magnesium 1.9 (1.8-2.4) mg/dl C-Reactive Protein 11.4 H* (<1.0) mg/dL Vancomycin Trough 11.5 (10.0-20.0) Rogelio Results Last 24 Hours: Microbiology 10/05/17 07:05 Aerobic Blood Culture - Preliminary Blood - Venous NO GROWTH AFTER 2 DAYS Anaerobic Blood Culture - Preliminary NO GROWTH AFTER 2 DAYS 10/05/17 07:15 Aerobic Blood Culture - Preliminary Blood - Venous - Lab Draw NO GROWTH AFTER 2 DAYS Anaerobic Blood Culture - Final Med Orders - Current: Current Medications Acetaminophen (Tylenol) 650 mg PO Q6HR PRN PRN Reason: Pain Hydrocodone Bitart/Acetaminophen ([place] 325-5 Mg) 1 tab PO Q4H PRN PRN Reason: Pain (moderate 4-6) Last Admin: 10/07/17 10:11 Dose: 1 tab Famotidine (Pepcid) 20 mg PO BID [facility] Last Admin: 10/07/17 09:33 Dose: 20 mg Vancomycin HCl 1 gm/Vancomycin HCl 250 mg/ Sodium Chloride 250 mls @ 250 mls/ hr IV Q8H [facility] Last Admin: 10/07/17 12:24 Dose: 250 mls/hr Sodium Chloride (Normal Saline) 1,000 mls @ 100 mls/hr IV ASDIRECTED [facility] Last Admin: 10/07/17 15:32 Dose: 100 mls/hr Ceftriaxone Sodium 2 gm/ (Sodium Chloride) 100 mls @ 200 mls/hr IV Q24H [facility] Last Admin: 10/07/17 11:13 Dose: 200 mls/hr Ibuprofen (Motrin) 800 mg PO Q8HR PRN PRN Reason: Pain Morphine Sulfate (Morphine) 2 mg IVPUSH Q4H PRN PRN Reason: Pain Last Admin: 10/05/17 06:26 Dose: 2 mg Nicotine (Habitrol) 21 mg TRDERM DAILY PRN PRN Reason: Need to smoke Ondansetron HCl (Zofran Odt) 4 mg PO Q6H PRN PRN Reason: nausea, able to take PO Ondansetron HCl (Zofran) 4 mg IV Q6H PRN PRN Reason: Nausea/Vomiting Saccharomyces Boulardii (Florastor) 500 mg PO DAILY [facility] Last Admin: 10/07/17 09:32 Dose: 500 mg Temazepam (Restoril) 15 mg PO BEDTIME PRN PRN Reason: Insomnia Vancomycin HCl (Pharmacy To Dose - Vancomycin) 0 dose .XX ASDIRECTED [facility] Discontinued Medications Hydromorphone HCl (Dilaudid) 1 mg IVPUSH ONETIME STA Stop: 08/15/18 00:15 Last Admin: 10/05/17 00:34 Dose: Not Given Hydromorphone HCl (Dilaudid) Confirm Administered Dose 1 mg .ROUTE .STK-MED ONE Stop: 10/05/17 00:26 Last Admin: 10/05/17 00:33 Dose: 1 mg Cefazolin Sodium/Dextrose 2 gm (/ Premix) 50 mls @ 100 mls/hr IV ONETIME STA Stop: 10/05/17 00:42 Last Admin: 10/05/17 00:34 Dose: 100 mls/hr Vancomycin HCl 1 gm/ Sodium (Chloride) 250 mls @ 250 mls/hr IV ONETIME STA Stop: 10/05/17 01:12 Last Admin: 10/05/17 01:13 Dose: 250 mls/hr Sodium Chloride (Normal Saline) 1,000 mls @ 150 mls/hr IV ASDIRECTED [facility] Last Admin: 10/06/17 03:28 Dose: 150 mls/hr Doxycycline Hyclate 100 mg/ (Sodium Chloride) 100 mls @ 100 mls/hr IV Q12H [facility] Last Admin: 10/05/17 13:25 Dose: 100 mls/hr Tetanus/Diphtheria Toxoids (Tenivac) 0.5 ml IM .ONCE ONE Stop: 10/06/17 11:46 Last Admin: 10/06/17 12:00 Dose: 0.5 ml Vancomycin HCl (Vancomycin) Confirm Administered Dose 500 mg .ROUTE .STK-MED ONE Stop: 10/06/17 03:09 Last Admin: 10/06/17 03:16 Dose: Not Given - Exam General: Alert, Oriented, Cooperative, No Acute Distress HEENT: Pupils Equal, Pupils Reactive, EOMI, Mucous Membr. Moist/[place] Neck: Supple Lungs: Clear to Auscultation, Normal Respiratory Effort Cardiovascular: Regular Rate, Regular Rhythm GI/Abdominal Exam: Normal Bowel Sounds, Soft, Non-Tender, No Organomegaly, No Distention, No Abnormal Bruit, No Mass, Pelvis Stable (Male) Exam: Deferred Back Exam: Normal Inspection, Full Range of Motion Extremities: Normal Range of Motion, Non-Tender, No Pedal Edema, Normal Capillary Refill, Leg Pain (improving), Other (erythema improving; there is a 1cm x 1cm abscess that has formed near the original entry site wound). No: Increased Warmth (decreasing) Peripheral Pulses: 4+: Posterior Tibial (L), Posterior Tibial (R), Dorsalis Pedis (L), Dorsalis Pedis (R) Skin: Warm, Dry, Intact Neurological: No New Focal Deficit Psy/Mental Status: Alert, Normal Affect, Normal Mood - Problem List & Annotations (1) Cellulitis of right leg without foot SNOMED Code(s): 775939313 Code(s): L03.115 - CELLULITIS OF RIGHT LOWER LIMB Status: Acute Priority : High Current Visit: Yes - Problem List Review Problem List Initiated/Reviewed/Updated: Yes - Plan Plan:: I/P: Acute: Cellulitis, R Leg, Improving * 8 days ago his skateboard struck the medial aspect of his right leg, 2 days ago the leg became swollen and painful, Yesterday erythema began * No Fever/Chills * Ancef 2gm and Vancomycin 1g given in ED--> D/C'd * WBC 14.7--> 10.95--> 9.68, CRP 25.4--> 18.3 --> 11.4 * Sepsis Protocol: * Lactic Acid 0.5 * Blood cultures--> no growth * IVF * Pt was switched to Doxy 100mg BID --> D/C; erythema grew 2 inches from previous markings on leg; have made new dotted markings to differentiate and continue to monitor * Vancomycin and Rocephin for gram - coverage--> erythema has receded below the original markings in the ED; continue this regimen * MRSA by PCR negative; No wound to culture * Pain management PRN Tobacco Dependence * 1 ppd x 7 years * Not interested in quitting at this time * Smoking Cessation counseling given * Nicotine patch started Chronic: h/o Appendectomy h/o Marijuana use Plan: Admit to medical floor Home meds as ordered Routine AM labs Other orders as above DVT Prophylaxis: Ambulation GI Prophylaxis: Pepcid Code Status: Full Code; PCP: none Will likely D/C once IV antibiotics are no longer needed.
--- NOTE | 2017-10-07 16:56 | PCM.PRNOTE ---
- Free Text/Narrative Note: DATE: 10/07/2017 TIME: 1700 PRE-OP DIAGNOSIS: Abscess POST-OP DIAGNOSIS: Abscess PROCEDURE: Incision and Drainage Performing Physician: Miguelina Cifuentes PA-C Non Destructive Testing Scientist: Arlene Mcdonough RN Anesthetic: Topical Lidocaine 4%, Lidocaine with Epi 1% Procedure: The area was prepped in the usual sterile manner. Incision was made with scalpel and wound culture was taken. The abscess was then explored with hemostat and drained. Irrigation of the wound was performed with Sterile Water. The wound was packed with sterile packing strips. Wound covered with sterile gauze and tape. The patient tolerated the procedure well without complications.
[2017-10-07] MEDS ORDERED: Lidocaine 4% Crm 5 Gm with Transparent Dressing Kit TOP ONE (16:59)
[2017-10-07] MEDS ORDERED: Lidocaine 1% with EPINEPHrine 1:100,000 20 ML MDV INJECT ONE (17:50)
[2017-10-07] MEDS: Morphine 2 MG/ML Syringe IVPUSH PRN (20:09)
[2017-10-08] MEDS: Saccharomyces Boulardii (Probiotic) 250 MG Cap PO SCH (08:40)
[2017-10-08] MEDS: Famotidine 20 MG Tab PO SCH ×2 (08:40→20:46)
[2017-10-08] MEDS: cefTRIAXone 2 GM in Sodium Chloride 0.9% 100 ML IV SCH (10:33)
[2017-10-08] MEDS: Acetaminophen/HYDROcodone 325-5 MG Tab PO PRN (12:25)
--- NOTE | 2017-10-08 18:25 | PCM.PN ---
- General Info Date of Service: 10/08/17 Functional Status: Reports: Pain Controlled, Tolerating Diet, Ambulating - Review of Systems General: Reports: No Symptoms HEENT: Reports: No Symptoms Pulmonary: Reports: No Symptoms Cardiovascular: Reports: No Symptoms Gastrointestinal: Reports: No Symptoms Genitourinary: Reports: No Symptoms Musculoskeletal: Reports: No Symptoms Skin: Reports: No Symptoms Neurological: Reports: No Symptoms Psychiatric: Reports: No Symptoms - Patient Data Vitals - Most Recent: Last Vital Signs Temp 36.9 C 10/08/17 16:23 Pulse 60 10/08/17 16:23 Resp 16 10/08/17 16:23 BP 130/72 10/08/17 16:23 Pulse Ox 98 10/08/17 16:23 Weight - Most Recent: 83.597 kg I&O - Last 24 Hours: Intake & Output 10/08/17 10/08/17 10/08/17 06:59 14:59 22:59 Intake Total 900 750 Balance 900 750 Lab Results Last 24 Hours: Laboratory Results - last 24 hr 10/08/17 10/08/17 Range/Units 05:52 05:52 WBC 7.17 (4.23-9.07) K/mm3 RBC 4.44 L (4.63-6.08) M/mm3 Hgb 13.6 L (13.7-17.5) gm/L Hct 40.4 (40.1-51.0) % MCV 91.0 (79.0-92.2) fl MCH 30.6 (25.7-32.2) pg MCHC 33.7 (32.2-35.5) g/dl RDW Std Deviation 41.9 (35.1-43.9) fL Plt Count 360 H (163-337) K/mm3 MPV 10.3 (9.4-12.3) fl Neut % (Auto) 59.2 (34.0-67.9) % Lymph % (Auto) 28.2 (21.8-53.1) % [place]rick % (Auto) 9.1 (5.3-12.2) % Eos % (Auto) 2.8 (0.8-7.0) Baso % (Auto) 0.6 (0.1-1.2) % Neut # (Auto) 4.25 (1.78-5.38) K/mm3 Lymph # (Auto) 2.02 (1.32-3.57) K/mm3 [place] # (Auto) 0.65 (0.30-0.82) K/mm3 Eos # (Auto) 0.20 (0.04-0.54) K/mm3 Baso # (Auto) 0.04 (0.01-0.08) K/mm3 Sodium 141 (136-145) mEq/L Potassium 3.5 (3.5-5.1) mEq/L Chloride 104 (98-107) mEq/L Carbon Dioxide 27 (21-32) mEq/L Anion Gap 13.5 (5-15) BUN 13 (7-18) mg/dL Creatinine 1.0 (0.7-1.3) mg/dL Est Cr Clr Drug Dosing 132.43 mL/min Estimated GFR (MDRD) > 60 (>60) mL/min BUN/Creatinine Ratio 13.0 L (14-18) Glucose 118 H (74-106) mg/dL Calcium 9.4 (8.5-10.1) mg/dL Magnesium 2.0 (1.8-2.4) mg/dl C-Reactive Protein 7.0 H* (<1.0) mg/dL Rogelio Results Last 24 Hours: Microbiology 10/05/17 07:05 Aerobic Blood Culture - Preliminary Blood - Venous NO GROWTH AFTER 3 DAYS Anaerobic Blood Culture - Preliminary NO GROWTH AFTER 3 DAYS 10/05/17 07:15 Aerobic Blood Culture - Preliminary Blood - Venous - Lab Draw NO GROWTH AFTER 3 DAYS Anaerobic Blood Culture - Final Med Orders - Current: Current Medications Acetaminophen (Tylenol) 650 mg PO Q6HR PRN PRN Reason: Pain Hydrocodone Bitart/Acetaminophen ([place] 325-5 Mg) 1 tab PO Q4H PRN PRN Reason: Pain (moderate 4-6) Last Admin: 10/08/17 12:25 Dose: 1 tab Famotidine (Pepcid) 20 mg PO BID [facility] Last Admin: 10/08/17 08:40 Dose: 20 mg Vancomycin HCl 1 gm/Vancomycin HCl 250 mg/ Sodium Chloride 250 mls @ 250 mls/ hr IV Q8H [facility] Last Admin: 10/08/17 11:11 Dose: 250 mls/hr Ceftriaxone Sodium 2 gm/ (Sodium Chloride) 100 mls @ 200 mls/hr IV Q24H [facility] Last Admin: 10/08/17 10:33 Dose: 200 mls/hr Ibuprofen (Motrin) 800 mg PO Q8HR PRN PRN Reason: Pain Morphine Sulfate (Morphine) 2 mg IVPUSH Q4H PRN PRN Reason: Pain Last Admin: 10/07/17 20:09 Dose: 2 mg Nicotine (Habitrol) 21 mg TRDERM DAILY PRN PRN Reason: Need to smoke Ondansetron HCl (Zofran Odt) 4 mg PO Q6H PRN PRN Reason: nausea, able to take PO Ondansetron HCl (Zofran) 4 mg IV Q6H PRN PRN Reason: Nausea/Vomiting Saccharomyces Boulardii (Florastor) 500 mg PO DAILY [facility] Last Admin: 10/08/17 08:40 Dose: 500 mg Temazepam (Restoril) 15 mg PO BEDTIME PRN PRN Reason: Insomnia Vancomycin HCl (Pharmacy To Dose - Vancomycin) 0 dose .XX ASDIRECTED [facility] Discontinued Medications Hydromorphone HCl (Dilaudid) 1 mg IVPUSH ONETIME STA Stop: 10/05/17 00:15 Last Admin: 10/05/17 00:34 Dose: Not Given Hydromorphone HCl (Dilaudid) Confirm Administered Dose 1 mg .ROUTE .STK-MED ONE Stop: 10/05/17 00:26 Last Admin: 10/05/17 00:33 Dose: 1 mg Cefazolin Sodium/Dextrose 2 gm (/ Premix) 50 mls @ 100 mls/hr IV ONETIME STA Stop: 10/05/17 00:42 Last Admin: 10/05/17 00:34 Dose: 100 mls/hr Vancomycin HCl 1 gm/ Sodium (Chloride) 250 mls @ 250 mls/hr IV ONETIME STA Stop: 10/05/17 01:12 Last Admin: 10/05/17 01:13 Dose: 250 mls/hr Sodium Chloride (Normal Saline) 1,000 mls @ 150 mls/hr IV ASDIRECTED [facility] Last Admin: 10/06/17 03:28 Dose: 150 mls/hr Doxycycline Hyclate 100 mg/ (Sodium Chloride) 100 mls @ 100 mls/hr IV Q12H [facility] Last Admin: 10/05/17 13:25 Dose: 100 mls/hr Sodium Chloride (Normal Saline) 1,000 mls @ 100 mls/hr IV ASDIRECTED [facility] Last Admin: 10/07/17 15:32 Dose: 100 mls/hr Lidocaine HCl (Lmx 4 Cream With Tegaderm) 1 each TOP ASDIRECTED ONE Stop: 10/07/17 17:00 Last Admin: 10/07/17 17:09 Dose: 1 ea Lidocaine/Epinephrine (Xylocaine 1% With Epinephrine 1:100,000) 20 ml INJECT ONETIME ONE Stop: 10/07/17 17:51 Last Admin: 10/07/17 17:59 Dose: 10 ml Tetanus/Diphtheria Toxoids (Tenivac) 0.5 ml IM .ONCE ONE Stop: 10/06/17 11:46 Last Admin: 10/06/17 12:00 Dose: 0.5 ml Vancomycin HCl (Vancomycin) Confirm Administered Dose 500 mg .ROUTE .STK-MED ONE Stop: 10/06/17 03:09 Last Admin: 10/06/17 03:16 Dose: Not Given - Exam Quality Assessment: DVT Prophylaxis General: Alert, Oriented, Cooperative, No Acute Distress HEENT: Pupils Equal, Pupils Reactive, EOMI Neck: Trachea Midline, No JVD Lungs: Normal Respiratory Effort Cardiovascular: Regular Rate, Regular Rhythm GI/Abdominal Exam: Normal Bowel Sounds, Soft, Non-Tender, No Organomegaly, No Distention (Male) Exam: Deferred Back Exam: CVA Tenderness (R) Extremities: Normal Inspection, Non-Tender, Normal Capillary Refill Skin: Warm Wound/Incisions: Dressing Dry and Intact, Erythema Improving Neurological: No New Focal Deficit Psy/Mental Status: Alert, Normal Affect, Normal Mood - Problem List Review Problem List Initiated/Reviewed/Updated: Yes - Plan Plan:: I/P: Acute: Cellulitis, R Leg, Improving-->POD 1, I/D * 8 days ago his skateboard struck the medial aspect of his right leg, 2 days ago the leg became swollen and painful, Yesterday erythema began * No Fever/Chills * Ancef 2gm and Vancomycin 1g given in ED--> D/C'd * WBC 14.7--> 10.95--> 9.68, CRP 25.4--> 18.3 --> 11.4 * Sepsis Protocol: * Lactic Acid 0.5 * Blood cultures--> no growth * IVF * Pt was switched to Doxy 100mg BID --> D/C; erythema grew 2 inches from previous markings on leg; have made new dotted markings to differentiate and continue to monitor * Vancomycin and Rocephin for gram - coverage--> erythema has receded below the original markings in the ED; continue this regimen * MRSA by PCR negative; No wound to culture * Pain management PRN Tobacco Dependence * 1 ppd x 7 years * Not interested in quitting at this time * Smoking Cessation counseling given * Nicotine patch started Chronic: h/o Appendectomy h/o Marijuana use Plan: Admit to medical floor Home meds as ordered Routine AM labs Other orders as above DVT Prophylaxis: Ambulation GI Prophylaxis: Pepcid Code Status: Full Code; PCP: none Will likely D/C once IV antibiotics are no longer needed.
[2017-10-09] MEDS: Famotidine 20 MG Tab PO SCH ×2 (09:15→20:17)
[2017-10-09] MEDS: Acetaminophen/HYDROcodone 325-5 MG Tab PO PRN ×2 (09:15→22:41)
[2017-10-09] MEDS: Saccharomyces Boulardii (Probiotic) 250 MG Cap PO SCH (09:15)
[2017-10-09] MEDS: Morphine 2 MG/ML Syringe IVPUSH PRN (10:15)
[2017-10-09] MEDS: cefTRIAXone 2 GM in Sodium Chloride 0.9% 100 ML IV SCH (11:54)
--- NOTE | 2017-10-09 14:47 | PCM.PN ---
- General Info Date of Service: 10/09/17 Functional Status: Reports: Pain Controlled, Tolerating Diet, Ambulating, Urinating - Review of Systems General: Reports: No Symptoms HEENT: Reports: No Symptoms Pulmonary: Reports: No Symptoms Cardiovascular: Reports: No Symptoms Gastrointestinal: Reports: No Symptoms Genitourinary: Reports: No Symptoms Musculoskeletal: Reports: No Symptoms Skin: Reports: No Symptoms Neurological: Reports: No Symptoms Psychiatric: Reports: No Symptoms - Patient Data Vitals - Most Recent: Last Vital Signs Temp 36.6 C 10/09/17 03:09 Pulse 44 L 10/09/17 03:09 Resp 16 10/09/17 03:09 BP 124/70 10/09/17 03:09 Pulse Ox 99 10/09/17 03:09 Weight - Most Recent: 83.597 kg I&O - Last 24 Hours: Intake & Output 10/08/17 10/09/17 10/09/17 22:59 06:59 14:59 Intake Total 1050 240 Balance 1050 240 Lab Results Last 24 Hours: Laboratory Results - last 24 hr 10/09/17 10/09/17 Range/Units 06:00 06:00 WBC 6.59 (4.23-9.07) K/mm3 RBC 4.68 (4.63-6.08) M/mm3 Hgb 14.2 (13.7-17.5) gm/L Hct 42.3 (40.1-51.0) % MCV 90.4 (79.0-92.2) fl MCH 30.3 (25.7-32.2) pg MCHC 33.6 (32.2-35.5) g/dl RDW Std Deviation 41.5 (35.1-43.9) fL Plt Count 395 H (163-337) K/mm3 MPV 10.1 (9.4-12.3) fl Neut % (Auto) 51.5 (34.0-67.9) % Lymph % (Auto) 34.7 (21.8-53.1) % Patrick % (Auto) 9.0 (5.3-12.2) % Eos % (Auto) 3.3 (0.8-7.0) Baso % (Auto) 0.9 (0.1-1.2) % Neut # (Auto) 3.39 (1.78-5.38) K/mm3 Lymph # (Auto) 2.29 (1.32-3.57) K/mm3 Patrick # (Auto) 0.59 (0.30-0.82) K/mm3 Eos # (Auto) 0.22 (0.04-0.54) K/mm3 Baso # (Auto) 0.06 (0.01-0.08) K/mm3 Sodium 144 (136-145) mEq/L Potassium 3.7 (3.5-5.1) mEq/L Chloride 106 (98-107) mEq/L Carbon Dioxide 25 (21-32) mEq/L Anion Gap 16.7 H (5-15) BUN 14 (7-18) mg/dL Creatinine 0.9 (0.7-1.3) mg/dL Est Cr Clr Drug Dosing 147.15 mL/min Estimated GFR (MDRD) > 60 (>60) mL/min BUN/Creatinine Ratio 15.6 (14-18) Glucose 87 (74-106) mg/dL Calcium 9.4 (8.5-10.1) mg/dL Magnesium 2.0 (1.8-2.4) mg/dl C-Reactive Protein 3.9 H* (<1.0) mg/dL Rogelio Results Last 24 Hours: Microbiology 10/05/17 07:05 Aerobic Blood Culture - Preliminary Blood - Venous NO GROWTH AFTER 4 DAYS Anaerobic Blood Culture - Preliminary NO GROWTH AFTER 4 DAYS 10/05/17 07:15 Aerobic Blood Culture - Preliminary Blood - Venous - Lab Draw NO GROWTH AFTER 4 DAYS Anaerobic Blood Culture - Final Med Orders - Current: Current Medications Acetaminophen (Tylenol) 650 mg PO Q6HR PRN PRN Reason: Pain Hydrocodone Bitart/Acetaminophen ([place] 325-5 Mg) 1 tab PO Q4H PRN PRN Reason: Pain (moderate 4-6) Last Admin: 10/09/17 09:15 Dose: 1 tab Famotidine (Pepcid) 20 mg PO BID [facility] Last Admin: 10/09/17 09:15 Dose: 20 mg Vancomycin HCl 1 gm/Vancomycin HCl 250 mg/ Sodium Chloride 250 mls @ 250 mls/ hr IV Q8H [facility] Last Admin: 10/09/17 12:39 Dose: 250 mls/hr Ceftriaxone Sodium 2 gm/ (Sodium Chloride) 100 mls @ 200 mls/hr IV Q24H [facility] Last Admin: 10/09/17 11:54 Dose: 200 mls/hr Ibuprofen (Motrin) 800 mg PO Q8HR PRN PRN Reason: Pain Morphine Sulfate (Morphine) 2 mg IVPUSH Q4H PRN PRN Reason: Pain Last Admin: 10/09/17 10:15 Dose: 2 mg Nicotine (Habitrol) 21 mg TRDERM DAILY PRN PRN Reason: Need to smoke Ondansetron HCl (Zofran Odt) 4 mg PO Q6H PRN PRN Reason: nausea, able to take PO Ondansetron HCl (Zofran) 4 mg IV Q6H PRN PRN Reason: Nausea/Vomiting Saccharomyces Boulardii (Florastor) 500 mg PO DAILY [facility] Last Admin: 10/09/17 09:15 Dose: 500 mg Temazepam (Restoril) 15 mg PO BEDTIME PRN PRN Reason: Insomnia Vancomycin HCl (Pharmacy To Dose - Vancomycin) 0 dose .XX ASDIRECTED [facility] Discontinued Medications Hydromorphone HCl (Dilaudid) 1 mg IVPUSH ONETIME STA Stop: 10/05/17 00:15 Last Admin: 10/05/17 00:34 Dose: Not Given Hydromorphone HCl (Dilaudid) Confirm Administered Dose 1 mg .ROUTE .STK-MED ONE Stop: 10/05/17 00:26 Last Admin: 10/05/17 00:33 Dose: 1 mg Cefazolin Sodium/Dextrose 2 gm (/ Premix) 50 mls @ 100 mls/hr IV ONETIME STA Stop: 10/05/17 00:42 Last Admin: 10/05/17 00:34 Dose: 100 mls/hr Vancomycin HCl 1 gm/ Sodium (Chloride) 250 mls @ 250 mls/hr IV ONETIME STA Stop: 10/05/17 01:12 Last Admin: 10/05/17 01:13 Dose: 250 mls/hr Sodium Chloride (Normal Saline) 1,000 mls @ 150 mls/hr IV ASDIRECTED [facility] Last Admin: 10/06/17 03:28 Dose: 150 mls/hr Doxycycline Hyclate 100 mg/ (Sodium Chloride) 100 mls @ 100 mls/hr IV Q12H [facility] Last Admin: 10/05/17 13:25 Dose: 100 mls/hr Sodium Chloride (Normal Saline) 1,000 mls @ 100 mls/hr IV ASDIRECTED [facility] Last Admin: 10/07/17 15:32 Dose: 100 mls/hr Lidocaine HCl (Lmx 4 Cream With Tegaderm) 1 each TOP ASDIRECTED ONE Stop: 10/07/17 17:00 Last Admin: 10/07/17 17:09 Dose: 1 ea Lidocaine/Epinephrine (Xylocaine 1% With Epinephrine 1:100,000) 20 ml INJECT ONETIME ONE Stop: 10/07/17 17:51 Last Admin: 10/07/17 17:59 Dose: 10 ml Tetanus/Diphtheria Toxoids (Tenivac) 0.5 ml IM .ONCE ONE Stop: 10/06/17 11:46 Last Admin: 10/06/17 12:00 Dose: 0.5 ml Vancomycin HCl (Vancomycin) Confirm Administered Dose 500 mg .ROUTE .STK-MED ONE Stop: 10/06/17 03:09 Last Admin: 10/06/17 03:16 Dose: Not Given - Exam Quality Assessment: DVT Prophylaxis General: Alert, Oriented, Cooperative, No Acute Distress HEENT: Pupils Equal, Pupils Reactive, EOMI Neck: Trachea Midline, No JVD Lungs: Normal Respiratory Effort Cardiovascular: Regular Rate, Regular Rhythm GI/Abdominal Exam: Normal Bowel Sounds, Soft, Non-Tender, No Organomegaly, No Distention (Male) Exam: Deferred Back Exam: Normal Inspection Extremities: Normal Inspection, Non-Tender, Normal Capillary Refill Skin: Warm Wound/Incisions: Healing Well, Dressing Dry and Intact, Erythema Improving Neurological: No New Focal Deficit, Normal Gait, Normal Speech Psy/Mental Status: Alert, Normal Affect, Normal Mood - Problem List Review Problem List Initiated/Reviewed/Updated: Yes - My Orders Last 24 Hours: My Active Orders 10/09/17 11:00 Wound Care [RC] 11 - Plan Plan:: I/P: Acute: Cellulitis, R Leg, Improving-->POD 2, I/D * 8 days ago his skateboard struck the medial aspect of his right leg, 2 days ago the leg became swollen and painful, Yesterday erythema began * No Fever/Chills * Ancef 2gm and Vancomycin 1g given in ED--> D/C'd * WBC 14.7--> 10.95--> 9.68, CRP 25.4--> 18.3 --> 11.4 * Sepsis Protocol: * Lactic Acid 0.5 * Blood cultures--> no growth * IVF * Pt was switched to Doxy 100mg BID --> D/C; erythema grew 2 inches from previous markings on leg; have made new dotted markings to differentiate and continue to monitor * Vancomycin and Rocephin for gram - coverage--> erythema has receded below the original markings in the ED; continue this regimen * MRSA by PCR negative; No wound to culture * Pain management PRN Tobacco Dependence * 1 ppd x 7 years * Not interested in quitting at this time * Smoking Cessation counseling given * Nicotine patch started Chronic: h/o Appendectomy h/o Marijuana use Plan: Admit to medical floor Home meds as ordered Routine AM labs Other orders as above DVT Prophylaxis: Ambulation GI Prophylaxis: Pepcid Code Status: Full Code; PCP: none Will likely D/C once IV antibiotics are no longer needed. LOS>96 hours with resolving cellulitis
[2017-10-10] MEDS: Saccharomyces Boulardii (Probiotic) 250 MG Cap PO SCH (09:54)
[2017-10-10] MEDS: Famotidine 20 MG Tab PO SCH (09:54)
[2017-10-10] MEDS: Morphine 2 MG/ML Syringe IVPUSH PRN (10:49)
[2017-10-10] MEDS: cefTRIAXone 2 GM in Sodium Chloride 0.9% 100 ML IV SCH (11:43)
--- NOTE | 2017-10-10 12:14 | PCM.DCSUM1 ---
Discharge Summary - Hospital Course HPI Initial Comments: This is a 22 yo male with past medical hx/o appendectomy who comes in for cellulitis of the R leg after sustaining a small 1cm laceration to the loo area about 8 days ago. The pain, erythema, and swelling continued to get worse so he came to the ED for treatment. His initial workup showed a CBC remarkable for WBC 14.7, Neut 75.4%, Lymph 14.8% . His chemistry is remarkable for CRP 25.4. MRSA (PCR) negative. He is subsequently admitted to the medical floor for IV antibiotics. He is a Full Code. Currently he has no PCP. Diagnosis: Stroke: No - Discharge Data Discharge Date: 10/10/17 (Admit date: 10/05/17) Discharge Disposition: Home, Self-Care 01 Condition: Good - Discharge Diagnosis/Problem(s) (1) Cellulitis of right leg without foot SNOMED Code(s): 628057631 ICD Code: L03.115 - CELLULITIS OF RIGHT LOWER LIMB Status: Acute Priority : High Current Visit: Yes - Patient Summary/Data Consults: Consultations 10/05/17 08:47 Consult to [employer] Specialist [CONS] Routine 10/07/17 11:58 Consult to Physical Therapy [PT Evaluation and Treatment] [CONS] Routine Labs Pending at D/C: None Recommended Follow-up Testing/Procedures: Follow-up with PCP within 7-10 days of discharge. Sooner if needed. Hospital Course: I/P: Acute: Cellulitis, R Leg, Improving-->POD 3, I/D * 8 days prior to visit his skateboard struck the medial aspect of his right leg , 2 days ago the leg became swollen and painful, Yesterday erythema began * No Fever/Chills * Ancef 2gm and Vancomycin 1g given in ED--> D/C'd * WBC 14.7--> 10.95--> 9.68-->7.17-->6.59->6.94 * CRP 25.4--> 18.3 --> 11.4-->7.0-->3.9-->1.9 * Sepsis Protocol: * Lactic Acid 0.5 * Blood cultures--> no growth * IVF * Pt was switched to Doxy 100mg BID --> D/C; erythema grew 2 inches from previous markings on leg; have made new dotted markings to differentiate and continue to monitor * Vancomycin and Rocephin for gram - coverage--> erythema has receded below the original markings in the ED; continue this regimen * Will be discharged on Q6HR 500mg Ampicillin after consulting pharmacy and culture * MRSA by PCR negative * I&D performed on 10/07/17 - Culture shows Group A strep with multiple sensitive antibiotics * Pain management PRN Tobacco Dependence * 1 ppd x 7 years * Not interested in quitting at this time * Smoking Cessation counseling given * Nicotine patch started -> never took while here Chronic: h/o Appendectomy h/o Marijuana use Plan: Admit to medical floor Home meds as ordered Routine AM labs Other orders as above DVT Prophylaxis: Ambulation GI Prophylaxis: Pepcid Code Status: Full Code; PCP: none Will likely D/C once IV antibiotics are no longer needed. LOS>96 hours with resolving cellulitis Overall Kiet continued to improve and do well after his antibiotics were switched. I&D was preformed on 10/07/17 and the culture grew out Group A strep. He has denied any recent pain. After consulting pharmacy and blood culture results decision was made to start PO Ampicillin 500mg Q6Hr for 5 days and discharge. He will also be given a prescription for a probiotic for 20 days. He does not have a PCP and nursing will attempt to set him up with someone in the clinic for follow-up. Nursing educated the patient on wound-care. He will be discharged today. Prior to discharge we discussed his tobacco use. He states he hasn't smoked here, nor has he had the patch and he feels good. He states he doesn't plan on starting again. We discussed a plan if he were to feel the urge and he was given the [place] quit line number, as well our our local health unit program number. We also discussed how his PCP can be an excellent option for assistance. - Patient Instructions Diet: Usual Diet as Tolerated Activity: As Tolerated Driving: Do Not Drive (today) Showering/Bathing: May Shower Wound/Incision Care: Keep Operative Site/Wound Site Clean and Dry, Change Dressing Daily Notify Provider of: Fever, Increased Pain, Swelling and Redness, Drainage, Nausea and/or Vomiting Other/Special Instructions: -We discussed how you do not have a primary care provider. We will set you up for one. Nursing will give you this appointment. You should be sure to attend even if you are feeling better. -You can utilize tylenol for pain if needed. -Take all medications as prescribed. Take your antibiotic until you are out - even if you feel 100% better. -Perform wound- care for 2 more days. After that you may just cover your wound as directed. - If you notice any increased drainage or redeness, or fever, come to the ER or seek medical care in the clinic. -We discussed smoking cessation. You indicated you do not need any patches or gum and you have been smoke free for a week and are feeling better. Below are good resources if you decide you woul like assistance in the future. Your primary care provider can also be an excellent resource, as we discussed. *[place] Quit Line: or TDD . [place] Quits: [phone] to enroll. . * Tobacco Prevention and Control Program: [phone]. - Discharge Plan *PRESCRIPTION DRUG MONITORING PROGRAM REVIEWED*: Not Applicable *COPY OF PRESCRIPTION DRUG MONITORING REPORT IN PATIENT SEDA: Not Applicable Prescriptions/Med Rec: Ampicillin [Principen] 500 mg PO Q6H #20 cap Saccharomyces Boulardii [Florastor] 500 mg PO DAILY #20 cap Home Medications: Home Meds Ampicillin [Principen] 500 mg PO Q6H #20 cap 10/10/17 [Rx] Saccharomyces Boulardii [Florastor] 500 mg PO DAILY #20 cap 10/10/17 [Rx] Patient Handouts: Steps to Quit Smoking, [id number], Health Risks of Smoking , Cellulitis, Adult, [id number], Steps to Quit Smoking Forms: ED Department Discharge Referrals: May Jacobson MD [Physician] - - Discharge Summary/Plan Comment DC Time >30 min.: Yes (45 mins) - General Info Date of Service: 10/10/17 Admission Dx/Problem (Free Text: Admission Diagnosis/Problem Admission Diagnosis/Problem Cellulitis Subjective Update: In to see Kiet. He is sitting in bed and doing very well. His leg looks very good. He has no current complaints or concerns. No nursing concerns. Nursing educated him on wound care. He is currently receiving his days dose of IV antibiotics. Plan is to discharge after this completes. We discussed tobacco cessation and he reports he has done well thus far and will not require patches. Discussed plan for should he feel the need and he voiced understanding. He will be discharged today as noted. Functional Status: Reports: Pain Controlled, Tolerating Diet, Ambulating, Urinating. Denies: New Symptoms - Review of Systems General: Denies: No Symptoms, Fever, Weakness, Fatigue, Malaise HEENT: Reports: No Symptoms Pulmonary: Reports: No Symptoms. Denies: Shortness of Breath, Cough, Sputum, Wheezing Cardiovascular: Reports: No Symptoms. Denies: Chest Pain, Palpitations, Edema Gastrointestinal: Reports: No Symptoms. Denies: Abdominal Pain, Constipation, Diarrhea, Nausea, Vomiting Genitourinary: Reports: No Symptoms Musculoskeletal: Reports: No Symptoms. Denies: Leg Pain Skin: Reports: No Symptoms Neurological: Reports: No Symptoms Psychiatric: Reports: No Symptoms - Patient Data Vitals - Most Recent: Last Vital Signs Temp 97.7 F 10/10/17 08:06 Pulse 61 10/10/17 08:06 Resp 16 10/10/17 08:06 BP 130/59 L 10/10/17 08:06 Pulse Ox 99 10/10/17 08:06 Weight - Most Recent: 179 lb 7 oz I&O - Last 24 hours: Intake & Output 10/09/17 10/10/17 10/10/17 22:59 06:59 14:59 Intake Total 650 550 Balance 650 550 Lab Results - Last 24 hrs: Laboratory Results - last 24 hr 10/10/17 10/10/17 Range/Units 09:25 09:25 WBC 6.94 (4.23-9.07) K/mm3 RBC 4.83 (4.63-6.08) M/mm3 Hgb 14.7 (13.7-17.5) gm/L Hct 43.7 (40.1-51.0) % MCV 90.5 (79.0-92.2) fl MCH 30.4 (25.7-32.2) pg MCHC 33.6 (32.2-35.5) g/dl RDW Std Deviation 41.7 (35.1-43.9) fL Plt Count 424 H (163-337) K/mm3 MPV 9.7 (9.4-12.3) fl Neut % (Auto) 60.3 (34.0-67.9) % Lymph % (Auto) 24.9 (21.8-53.1) % [place] % (Auto) 9.2 (5.3-12.2) % Eos % (Auto) 3.2 (0.8-7.0) Baso % (Auto) 1.4 H (0.1-1.2) % Neut # (Auto) 4.18 (1.78-5.38) K/mm3 Lymph # (Auto) 1.73 (1.32-3.57) K/mm3 [place] # (Auto) 0.64 (0.30-0.82) K/mm3 Eos # (Auto) 0.22 (0.04-0.54) K/mm3 Baso # (Auto) 0.10 H (0.01-0.08) K/mm3 Sodium 141 (136-145) mEq/L Potassium 3.9 (3.5-5.1) mEq/L Chloride 105 (98-107) mEq/L Carbon Dioxide 26 (21-32) mEq/L Anion Gap 13.9 (5-15) BUN 17 (7-18) mg/dL Creatinine 0.9 (0.7-1.3) mg/dL Est Cr Clr Drug Dosing 145.70 mL/min Estimated GFR (MDRD) > 60 (>60) mL/min BUN/Creatinine Ratio 18.9 H (14-18) Glucose 88 (74-106) mg/dL Calcium 9.4 (8.5-10.1) mg/dL Magnesium 2.0 (1.8-2.4) mg/dl C-Reactive Protein 1.9 H* (<1.0) mg/dL IVAN Results - Last 24 hrs: Microbiology 10/07/17 18:04 Wound Culture - Final Ankle, Right Beta Streptococcus Group A 10/07/17 17:48 Wound Culture - Final Ankle, Right Beta Streptococcus Group A 10/07/17 17:48 Wound Culture - Final Ankle, Right Beta Streptococcus Group A 10/05/17 07:05 Aerobic Blood Culture - Preliminary Blood - Venous NO GROWTH AFTER 5 DAYS Anaerobic Blood Culture - Preliminary NO GROWTH AFTER 5 DAYS 10/05/17 07:15 Aerobic Blood Culture - Preliminary Blood - Venous - Lab Draw NO GROWTH AFTER 5 DAYS Anaerobic Blood Culture - Final Med Orders - Current: Current Medications Acetaminophen (Tylenol) 650 mg PO Q6HR PRN PRN Reason: Pain Hydrocodone Bitart/Acetaminophen ([place] 325-5 Mg) 1 tab PO Q4H PRN PRN Reason: Pain (moderate 4-6) Last Admin: 10/09/17 22:41 Dose: 1 tab Famotidine (Pepcid) 20 mg PO BID [facility] Last Admin: 10/10/17 09:54 Dose: 20 mg Vancomycin HCl 1 gm/Vancomycin HCl 250 mg/ Sodium Chloride 250 mls @ 250 mls/ hr IV Q8H [facility] Last Admin: 10/10/17 04:41 Dose: 250 mls/hr Ceftriaxone Sodium 2 gm/ (Sodium Chloride) 100 mls @ 200 mls/hr IV Q24H [facility] Last Admin: 10/10/17 11:43 Dose: 200 mls/hr Ibuprofen (Motrin) 800 mg PO Q8HR PRN PRN Reason: Pain Morphine Sulfate (Morphine) 2 mg IVPUSH Q4H PRN PRN Reason: Pain Last Admin: 10/10/17 10:49 Dose: 2 mg Nicotine (Habitrol) 21 mg TRDERM DAILY PRN PRN Reason: Need to smoke Ondansetron HCl (Zofran Odt) 4 mg PO Q6H PRN PRN Reason: nausea, able to take PO Ondansetron HCl (Zofran) 4 mg IV Q6H PRN PRN Reason: Nausea/Vomiting Saccharomyces Boulardii (Florastor) 500 mg PO DAILY [facility] Last Admin: 10/10/17 09:54 Dose: 500 mg Temazepam (Restoril) 15 mg PO BEDTIME PRN PRN Reason: Insomnia Vancomycin HCl (Pharmacy To Dose - Vancomycin) 0 dose .XX ASDIRECTED [facility] Discontinued Medications Hydromorphone HCl (Dilaudid) 1 mg IVPUSH ONETIME STA Stop: 10/05/17 00:15 Last Admin: 10/05/17 00:34 Dose: Not Given Hydromorphone HCl (Dilaudid) Confirm Administered Dose 1 mg .ROUTE .STK-MED ONE Stop: 10/05/17 00:26 Last Admin: 10/05/17 00:33 Dose: 1 mg Cefazolin Sodium/Dextrose 2 gm (/ Premix) 50 mls @ 100 mls/hr IV ONETIME STA Stop: 10/05/17 00:42 Last Admin: 10/05/17 00:34 Dose: 100 mls/hr Vancomycin HCl 1 gm/ Sodium (Chloride) 250 mls @ 250 mls/hr IV ONETIME STA Stop: 10/05/17 01:12 Last Admin: 10/05/17 01:13 Dose: 250 mls/hr Sodium Chloride (Normal Saline) 1,000 mls @ 150 mls/hr IV ASDIRECTED [facility] Last Admin: 10/06/17 03:28 Dose: 150 mls/hr Doxycycline Hyclate 100 mg/ (Sodium Chloride) 100 mls @ 100 mls/hr IV Q12H [facility] Last Admin: 10/05/17 13:25 Dose: 100 mls/hr Sodium Chloride (Normal Saline) 1,000 mls @ 100 mls/hr IV ASDIRECTED [facility] Last Admin: 10/07/17 15:32 Dose: 100 mls/hr Lidocaine HCl (Lmx 4 Cream With Tegaderm) 1 each TOP ASDIRECTED ONE Stop: 10/07/17 17:00 Last Admin: 10/07/17 17:09 Dose: 1 ea Lidocaine/Epinephrine (Xylocaine 1% With Epinephrine 1:100,000) 20 ml INJECT ONETIME ONE Stop: 10/07/17 17:51 Last Admin: 10/07/17 17:59 Dose: 10 ml Tetanus/Diphtheria Toxoids (Tenivac) 0.5 ml IM .ONCE ONE Stop: 10/06/17 11:46 Last Admin: 10/06/17 12:00 Dose: 0.5 ml Vancomycin HCl (Vancomycin) Confirm Administered Dose 500 mg .ROUTE .STK-MED ONE Stop: 10/06/17 03:09 Last Admin: 10/06/17 03:16 Dose: Not Given - Exam Quality Assessment: Reports: DVT Prophylaxis General: Reports: Alert, Oriented, Cooperative, No Acute Distress HEENT: Reports: Pupils Equal, Pupils Reactive, EOMI, Mucous Membr. Moist/[place] Neck: Reports: Supple, Trachea Midline Lungs: Reports: Clear to Auscultation, Normal Respiratory Effort Cardiovascular: Reports: Regular Rate, Regular Rhythm GI/Abdominal Exam: Normal Bowel Sounds, Soft, Non-Tender, No Organomegaly, No Distention, No Abnormal Bruit, No Mass, Pelvis Stable (Male) Exam: Deferred Rectal (Males) Exam: Deferred Back Exam: Reports: Normal Inspection, Full Range of Motion Extremities: Normal Range of Motion, Non-Tender, No Pedal Edema, Normal Capillary Refill, Redness (improved to resolved ), Other (Bandage in place on right leg from I&D on tuesday. ). No: Increased Warmth Skin: Reports: Warm, Dry, Intact Wound/Incisions: Reports: Healing Well, Dressing Dry and Intact, No Drainage. Denies: Erythema Neurological: Reports: No New Focal Deficit Psy/Mental Status: Reports: Alert, Normal Affect, Normal Mood
== END 2017-10-10 14:00 | disposition home or self-care (01) | DRG 603 ==
LOC: JD.ED 23:29 → JD.MS 10-05 05:09 → OBSVTOIN 10-05 15:11
PROVIDERS: ADMIT Internal Medicine Cardiovascular Disease; ATTEND Internal Medicine Cardiovascular Disease
PROC: 3E0234Z Introduction of Serum, Toxoid and Vaccine into Muscle, Percutaneous Approach (ICD-10-PCS; 2017-10-06)
PROC: 0H9KXZZ Drainage of Right Lower Leg Skin, External Approach (ICD-10-PCS; principal; 2017-10-07)
DX: L02.415 Cutaneous abscess of right lower limb (principal); L03.115 Cellulitis of right lower limb; F17.200 Nicotine dependence, unspecified, uncomplicated; B95.0 Streptococcus, group A, as the cause of diseases classified elsewhere; S81.811A Laceration without foreign body, right lower leg, initial encounter; W22.8XXA Striking against or struck by other objects, initial encounter; Z23 Encounter for immunization
CPT/HCPCS: 36415; 80048; 80202; 83605; 83735; 85025; 86140; 87040; 87070; 87077; 87181; 87184; 87641; 90471; 90714; 96365; 96367; 96375; 97161-GP; 99283; 99284-25; A9270-GY; J0690; J0696; J1170; J2270; J3370; J3490; J7030; J7040; J7050

== ENCOUNTER 2017-10-11 16:55 | Emergency (ER) | payer MEDICAID ==
[2017-10-11] MEDS ORDERED: Sodium Chloride 0.9% 10 ML Syringe FLUSH PRN (17:40)
[2017-10-11] MEDS ORDERED: cefTRIAXone 2 GM in Sodium Chloride 0.9% 100 ML IV ONE (18:10)
--- NOTE | 2017-10-11 18:58 | EDM.PDOC ---
ED HPI GENERAL MEDICAL PROBLEM - General Chief Complaint: Wound Recheck Stated Complaint: R LEG INFECTION-RECHECK Time Seen by Provider: 10/11/17 17:17 Source of Information: Reports: Patient History Limitations: Reports: No Limitations - History of Present Illness INITIAL COMMENTS - FREE TEXT/NARRATIVE: Patient is a 22-year-old male presents ED complaining of increased redness to his lower right/medial leg. Patient was discharged yesterday from the hospital. Patient was made for 6 days for cellulitis. Received vancomycin and Rocephin while inpatient. Upon discharge she had minimal redness that is significantly worsened upon discharge. He started taking ampicillin today. He's taken 2 doses of ampicillin today. There is no redness streaking up his leg, fever chills, nausea vomiting, and pain is minimal at this point. He did change his dressing earlier today after cleansing his lower leg. He admits to being on his feet more today than over the past 6 days. Has not been soaking the wound. Right Ankle Pain Score (Numeric/FACES): 1 - Related Data Allergies Allergy/AdvReac Type Severity Reaction Status Date / Time No Known Allergies Allergy Verified 10/11/17 17:12 Home Meds: Home Meds Ampicillin [Principen] 500 mg PO Q6H #20 cap 10/10/17 [Rx] Saccharomyces Boulardii [Florastor] 500 mg PO DAILY #20 cap 10/10/17 [Rx] Past Medical History - Past Health History Medical/Surgical History: Denies Medical/Surgical History Neurological History: Reports: Headaches, Chronic - Infectious Disease History Infectious Disease History: Reports: Chicken Pox - Past Surgical History GI Surgical History: Reports: Appendectomy Social & Family History - Family History Family Medical History: Noncontributory - Tobacco Use Smoking Status *Q: Current Every Day Smoker Years of Tobacco use: 6 Packs/Tins Daily: 0.5 Used Tobacco, but Quit: No - Caffeine Use Caffeine Use: Reports: Soda - Recreational Drug Use Recreational Drug Use: No - Living Situation & Occupation Living situation: Reports: Single, with Family Occupation: Unemployed ED ROS GENERAL - Review of Systems Review Of Systems: ROS reveals no pertinent complaints other than HPI. ED EXAM, SKIN/RASH Exam: See Below Exam Limited By: No Limitations General Appearance: Alert, WD/WN, No Apparent Distress Ears: Hearing Grossly Normal Nose: Normal Inspection Throat/Mouth: Normal Voice, No Airway Compromise Head: Atraumatic, Normocephalic Neck: Normal Inspection, Supple Respiratory/Chest: No Respiratory Distress, Lungs Clear, Normal Breath Sounds, No Accessory Muscle Use Cardiovascular: Normal Peripheral Pulses, Regular Rate, Rhythm Peripheral Pulses: 2+: Posterior Tibial (R), Dorsalis Pedis (L) Extremities: Other (Small 0.25 cm opening to the medial lower tib with packing present. Faint redness encompassing this area extending up his medial leg. No drainage noted. Minimal pain present. ) Neurological: Alert, Oriented, CN II-XII Intact, Normal Cognition, No Motor/ Sensory Deficits Psychiatric: Normal Affect, Normal Mood Skin: Warm, Dry Course - Vital Signs Last Recorded V/S: Last Vital Signs Temp 98.9 F 10/11/17 17:04 Pulse 101 H 10/11/17 17:04 Resp 18 10/11/17 17:04 BP 157/101 H 10/11/17 17:04 Pulse Ox 97 10/11/17 17:04 - Orders/Labs/Meds Orders: Active Orders 24 hr Category Date Time Status Peripheral IV Care [RC] . DIRECTED Care 10/11/17 17:40 Active Sodium Chloride 0.9% [Saline Flush] Med 10/11/17 17:40 Active 10 ml FLUSH ASDIRECTED PRN Peripheral IV Insertion Adult [OM.PC] Routine Oth 10/11/17 17:40 Ordered Medication Orders Sodium Chloride (Saline Flush) 10 ml FLUSH ASDIRECTED PRN PRN Reason: Keep Vein Open Last Admin: 10/11/17 17:53 Dose: 10 ml Labs: Laboratory Tests 10/11/17 10/11/17 Range/Units 17:54 17:54 WBC 9.55 H (4.23-9.07) K/mm3 RBC 4.81 (4.63-6.08) M/mm3 Hgb 14.8 (13.7-17.5) gm/L Hct 43.1 (40.1-51.0) % MCV 89.6 (79.0-92.2) fl MCH 30.8 (25.7-32.2) pg MCHC 34.3 (32.2-35.5) g/dl RDW Std Deviation 41.8 (35.1-43.9) fL Plt Count 501 H (163-337) K/mm3 MPV 9.4 (9.4-12.3) fl Neutrophils % (Manual) 66 H (40-60) % Band Neutrophils % 0 (0-10) % Lymphocytes % (Manual) 30 (20-40) % Atypical Lymphs % 0 % Monocytes % (Manual) 2 (2-10) % Eosinophils % (Manual) 1 (0.8-7.0) % Basophils % (Manual) 1 (0.2-1.2) Toxic Granulation Few Platelet Estimate Adequate Plt Morphology Comment Normal RBC Morph Comment Not Reportable Sodium 142 (136-145) mEq/L Potassium 3.3 L (3.5-5.1) mEq/L Chloride 102 (98-107) mEq/L Carbon Dioxide 28 (21-32) mEq/L Anion Gap 15.3 H (5-15) BUN 12 (7-18) mg/dL Creatinine 1.0 (0.7-1.3) mg/dL Est Cr Clr Drug Dosing 132.43 mL/min Estimated GFR (MDRD) > 60 (>60) mL/min BUN/Creatinine Ratio 12.0 L (14-18) Glucose 89 (74-106) mg/dL Calcium 9.7 (8.5-10.1) mg/dL Total Bilirubin 0.4 (0.2-1.0) mg/dL AST 12 L (15-37) U/L ALT 11 L (16-63) U/L Alkaline Phosphatase 91 (46-116) U/L C-Reactive Protein 1.5 H* (<1.0) mg/dL Total Protein 8.5 H (6.4-8.2) g/dl Albumin 4.3 (3.4-5.0) g/dl Globulin 4.2 gm/dL Albumin/Globulin Ratio 1.0 (1-2) Meds: Medications Generic Name Dose Route Start Last Admin Trade Name Freq PRN Reason Stop Dose Admin Sodium Chloride 10 ml 10/11/17 17:40 10/11/17 17:53 Saline Flush FLUSH 10 ml ASDIRECTED PRN Administration Keep Vein Open Discontinued Medications Generic Name Dose Route Start Last Admin Trade Name Freq PRN Reason Stop Dose Admin Ceftriaxone Sodium 2 gm/ 100 mls @ 100 mls/hr 10/11/17 18:10 08/21/18 18:17 Sodium Chloride IV 10/11/17 19:09 100 mls/hr ONETIME ONE Administration - Re-Assessments/Exams Free Text/Narrative Re-Assessment/Exam: IV established with CBC, C14, and CRP. Reviewed discharge summary from recent admission. Wound grew out beta streptococcus group a sensitive to ampicillin. [address] Muñoz. Agreed with rocephin 2grams IV. Can continue patient on ampicillin or change to keflex. Ordered rocephin 2 grams IV. He will take his third dose of ampicillin while in the E.D. [address] Muñoz suggested giving another dose of ampicillin 500mg in the E.D. to obtain steady state sooner. Labs reviewed: White blood cell count 9.55, neutrophil percentage 66 with no left shift. Hemoglobin normal. Platelets 501. Potassium 3.3. Cr 1.0. CRP 1.5. IV antibiotics has been completed. Area of redness has been marked out. She is ready be discharged home. Dressing applied per nursing staff. The patient remained hemodynamically stable while under my care in the E.D. I discussed the concerning symptoms for which to return to the E.D. with the patient. The patient verbalized understanding. All questions were answered. Departure - Departure Time of Disposition: 19:08 Disposition: Home, Self-Care 01 Condition: Good Clinical Impression: Cellulitis Qualifiers: Site of cellulitis: extremity Site of cellulitis of extremity: lower extremity Laterality: right Qualified Code(s): L03.115 - Cellulitis of right lower limb - Discharge Information Instructions: Cellulitis, Adult Referrals: PCP,None [Primary Care Provider] - Forms: ED Department Discharge Additional Instructions: Continue taking the ampicillin as prescribed. Elevate the lower extremity above your heart when able to reduce any swelling and pain. Continue taking Tylenol and ibuprofen in alternating fashion for discomfort. Follow instructions by Dr. Muñoz upon discharge from the hospital. Keep appointment with PCP as scheduled for follow-up. Return to the ED if you develop any new or worsening symptoms. - My Orders Last 24 Hours: My Active Orders 10/11/17 17:40 Peripheral IV Care [RC] . DIRECTED Sodium Chloride 0.9% [Saline Flush] 10 ml FLUSH ASDIRECTED PRN Peripheral IV Insertion Adult [OM.PC] Routine - Assessment/Plan Last 24 Hours: My Active Orders 08/21/18 17:40 Peripheral IV Care [RC] . DIRECTED Sodium Chloride 0.9% [Saline Flush] 10 ml FLUSH ASDIRECTED PRN Peripheral IV Insertion Adult [OM.PC] Routine
== END 2017-10-11 19:25 | disposition home or self-care (01) ==
LOC: JD.ED 16:55
DX: L03.115 Cellulitis of right lower limb (principal); F17.210 Nicotine dependence, cigarettes, uncomplicated; Z79.899 Other long term (current) drug therapy
CPT/HCPCS: 36415; 80053; 85007; 85027; 86140; 96365; 99283; J0696; J7030; J7050

== ENCOUNTER 2019-09-17 18:59 | Emergency (ER) | payer SELFPAY ==
--- NOTE | 2019-09-17 20:05 | EDM.PDOC ---
ED HPI GENERAL MEDICAL PROBLEM - General Chief Complaint: Genitourinary Problem Stated Complaint: POSSIBLE ALLERGIC REACTION Time Seen by Provider: 09/17/19 19:58 - History of Present Illness INITIAL COMMENTS - FREE TEXT/NARRATIVE: 24-year-old male presents the emergency room with swelling on his penis. This started hour to an hour and a half prior to arrival and over time is actually getting better. Patient is a circumcised male. Patient was sexually active with his girlfriend and was perhaps a little more vigorous than normal. The patient does not have any pain in the penis he is just concerned about some distal swelling. He has not noticed any redness bruising or purplish discoloration other than distal swelling no alterations in the anatomy. Does not hurt to void. Has not had any fevers or chills. - Related Data Allergies Allergy/AdvReac Type Severity Reaction Status Date / Time No Known Allergies Allergy Verified 09/17/19 19:09 Home Meds: Home Meds . [No Known Home Meds] 09/17/19 [History] Past Medical History - Past Health History Medical/Surgical History: Denies Medical/Surgical History Neurological History: Reports: Headaches, Chronic - Infectious Disease History Infectious Disease History: Reports: Chicken Pox - Past Surgical History GI Surgical History: Reports: Appendectomy Musculoskeletal Surgical History: Reports: Other (See Below) Other Musculoskeletal Surgeries/Procedures:: ankle sx Social & Family History - Family History Family Medical History: Noncontributory - Tobacco Use Smoking Status *Q: Current Every Day Smoker Years of Tobacco use: 6 Packs/Tins Daily: 1 - Caffeine Use Caffeine Use: Reports: None - Recreational Drug Use Recreational Drug Use: Yes Drug Use in Last 12 Months: Yes Recreational Drug Type: Reports: Marijuana/Hashish Recreational Drug Use Frequency: Monthly - Living Situation & Occupation Living situation: Reports: Single, with Family Occupation: Unemployed ED ROS GENERAL - Review of Systems Review Of Systems: See Below Constitutional: Reports: No Symptoms Respiratory: Reports: No Symptoms Cardiovascular: Reports: No Symptoms GI/Abdominal: Reports: No Symptoms : Reports: No Symptoms ED EXAM, GENERAL - Physical Exam Exam: See Below Exam Limited By: No Limitations General Appearance: Alert, No Apparent Distress Respiratory/Chest: No Respiratory Distress, Lungs Clear, Normal Breath Sounds Cardiovascular: Regular Rate, Rhythm, No Edema, No Murmur GI/Abdominal: Normal Bowel Sounds, Soft, Non-Tender (Male) Exam: Other (Size male with distal swelling proximal to the glans this roughly goes up 1 to 2 mm on the dorsum 2 to 3 mm on the ventral surface. He has no bruising ecchymosis or other discoloration it is nontender to palpation. It seems to be getting better over time.) Course - Vital Signs Last Recorded V/S: Last Vital Signs Temp 36.8 C 09/17/19 19:07 Pulse 98 09/17/19 19:07 Resp 18 09/17/19 19:07 BP 154/96 H 09/17/19 19:07 Pulse Ox 99 09/17/19 19:07 - Re-Assessments/Exams Free Text/Narrative Re-Assessment/Exam: 09/17/19 20:44 Initially I thought he had a paraphimosis that was fairly mild however he did confirm that he was circumcised. This was a little puzzling. I discussed the situation with Dr. Gee neurologist on-call at [facility] in [place]. He does not believe it is anything dangerous however cannot be certain. He would be willing to see the patient in the [facility] emergency room if the patient wanted to make the trip. I did tell the patient uncertain terms were not entirely sure what is going on here he is welcome to go to [facility] to have this further evaluated now if he thinks he is getting better he can follow-up with Dr. Gee in the office tomorrow. I did discuss these options with the patient and he will consider them. At this point I think he wants to go home. Departure - Departure Time of Disposition: 20:45 Disposition: Home, Self-Care 01 Clinical Impression: Swelling of penis - Discharge Information Referrals: PCP,None [Primary Care Provider] - Forms: ED Department Discharge Additional Instructions: At this point your diagnosis is in question. The urologist at [facility] is in bed with Nolan would be happy to see you in the clinic tomorrow or you can be evaluated in the emergency room at [facility]. You may also return to this emergency room with any questions problems or worsening symptoms. If you would like follow up with Dr. Gee in the clinic tomorrow [phone] Sepsis Event Note (ED) - Evaluation Sepsis Screening Result: No Definite Risk - Focused Exam Vital Signs: Vital Signs Temp Pulse Resp BP Pulse Ox 09/17/19 19:07 36.8 C 98 18 154/96 H 99
== END 2019-09-17 21:01 | disposition home or self-care (01) ==
LOC: JD.ED 18:59
DX: N48.89 Other specified disorders of penis (principal); F17.210 Nicotine dependence, cigarettes, uncomplicated
CPT/HCPCS: 99282; 99283